=== PATIENT | female | born 1965 | race Caucasian/White ===

== ENCOUNTER 2016-06-15 13:14 | Emergency (ER) | payer BC ==
--- NOTE | 2016-06-15 14:19 | ED NURSING NOTES ---
Clinical Report - Nurses [facility] [place] [address] 06/15/2016 13:16 Patient: MARIANNE PERKINS TRIAGE Acuity: LEVEL 4. Chief Complaint: RECTAL PAIN. Alert. No acute distress. SEPSIS SCREEN: Sepsis Screen. Negative (no infection suspected/documented). --13:30 Natalie Harrison R.N. 13:24 06/15/16. BP: 156/76. HR: 84. RR: 20. O2 saturation: 100%. Temp: 98.3 F (oral). Pain level now: 11/28. --13:30 Natalie Harrison R.N. Weight: 97 kg stated. Height/Length: 62 inches Per Patient. BMI: 39.2. --13:25 Natalie Harrison R.N. Medications Flonase Nasal. --13:24 Natalie Harrison R.N. Zantac Oral. --13:24 Natalie Harrison R.N. Medication/allergy information source: the patient. --13:30 Natalie Harrison R.N. Allergies No Known Drug Allergy. --17:39 Natalie Harrsion R.N. History Arrived by private vehicle. Historian: patient. Accompanied by spouse. Primary physician (none). This started today. ( Pt reports she has external hemorrhoids and yesterday she strained to have a BM and has had increasing pain with some bleeding. Pt reports she had a BM today, and "It was normal."). SOCIAL HX: Never smoker. Occasional alcohol use. No drug use. FALL RISK ASSESSMENT: Fall risk assessment completed. No fall risk identified. NUTRITIONAL RISK ASSESSMENT: The nutritional risk assessment revealed no deficiencies. FUNCTIONAL ASSESSMENT: Functional assessment: no impairments noted. LEARNING NEEDS ASSESSMENT: The learning needs assessment revealed no barriers. SKIN INTEGRITY ASSESSMENT: Skin integrity risk assessment completed. No skin integrity risk identified. --13:30 Natalie Harrison R.N. Assessment GENERAL / NEURO / PSYCH: Alert. Oriented X 4. Appears in no acute distress. Appears in pain. Patient appears calm and cooperative. RESPIRATORY: Respirations not labored. CVS: Capillary refill less than 2 seconds. GI / : Abdominal distention. Abdomen soft. SKIN: Mucous membranes are pink. Skin is warm and dry. --13:30 Natalie Harrison R.N. Interventions ID band on patient. To treatment room. --13:30 Natalie Harrison R.N. PHYSICAL ASSESSMENT 13:31 06/15/16. Ambulatory to room. GENERAL / NEURO / PSYCH: Alert. Oriented X 4. Appears in no acute distress. HEENT: Pupils equal, round and reactive to light. No facial asymmetry noted. Mucous membranes are pink. RESPIRATORY: Respirations not labored. CVS: Capillary refill less than 2 seconds. GI / : Abdominal distention. Abdomen nontender. SKIN: Skin intact. Skin is warm and dry. Normal skin turgor. --13:31 Natalie Harrison R.N. NURSING PROGRESS NOTES 13:31 06/15/16. Patient gowned. Reassurance given. Two patient identifiers checked. Call light placed in reach. Side rails up x 1. Bed placed in lowest position. Brakes of bed on. Patient ready for evaluation- chart flagged. --13:31 Natalie Harrison R.N. DISPOSITION / DISCHARGE Departure time: 14:20 Jun 15 2016. Condition at departure: improved and stable. No learning barriers present. Discharge instructions provided and reviewed with the patient. Reviewed medication(s) side effects, precautions and dosing information. Prescription(s) given to the patient. Patient verbalized understanding. Written instructions provided in Sammarinese. The patient was discharged by the physician asset protection assistant. She was discharged home and accompanied by spouse. She left the Emergency Department ambulatory and via private vehicle. Spouse driving. --17:37 Natalie Harrison R.N. Locked/Released at 06/15/2016 17:39 by Natalie Harrison R.N.
--- NOTE | 2016-06-15 14:19 | ED CLINICAL REPORT ---
Clinical Report - Physicians/Mid Levels [facility] [address] [place] [address] 06/15/2016 13:16 Patient: MARIANNE PERKINS Time Seen: 13:47; initial patient contact. Arrived- By private vehicle. Historian- patient. HISTORY OF PRESENT ILLNESS Chief Complaint: RECTAL PAIN and HEMORRHOIDS. This started yesterday and has been severe. (pt with intermittent hard stools and history of hemorrhoids externally, has had intermittent rectal bleeding with hard to pass dry stools in the past few months, has had prior colonoscopy which was neg and they found internal hemorrhoids as well...pt states they have been acting up with severe rectal pain 'like razorblades in her rectum' for several days, now is starting to get a little better since used suppository this morning.' no black or tarry stools, but feels bloated and her belly button is now an 'outtie'...used to be an inny. has an appointment with her pcp on Friday this coming week for recheck.). Is still present but is better now. The patient has had rectal bleeding, constipation and hard stools but not had dark stools. She has had severe rectal pain described as stabbing and "pain". No nausea, vomiting, diarrhea or abdominal pain. No known contact with a sick individual. Similar symptoms previously: Several times, milder. Recent medical care: The patient was seen recently at another facility in a clinic. REVIEW OF SYSTEMS No dizziness, fainting episodes, weakness, abnormal bleeding or vaginal discharge. No complaint of rectal foreign body. She has had no rectal intercourse. All systems otherwise negative, except as recorded above. PAST HISTORY See nurses notes. Hemorrhoids. No history of peptic ulcer. Medications: Zantac Oral. Flonase Nasal. SOCIAL HISTORY No alcohol use or drug use. ADDITIONAL NOTES The nursing notes have been reviewed with agreement regarding the chief complaint, HPI, ROS, PMH and patient medications and allergies. PHYSICAL EXAM Vital Signs: 06/15/2016 13:24 BP: 156/76. HR: 84. RR: 20. O2 saturation: 100%. Temp: 98.3 F. Pain level now: 11/28. Have been reviewed. Appearance: Alert. Oriented X3. Anxious. Appears to be in pain. Patient in mild distress. Eyes: Pupils equal, round and reactive to light. Eyes normal inspection. Neck: Normal inspection. Neck supple. CVS: Normal heart rate and rhythm. Heart sounds normal. Pulses normal. Respiratory: No respiratory distress. Breath sounds normal. Abdomen: Soft and nontender. Bowel sounds normal. No organomegaly. No mass. Femoral pulses equal. Back: Normal inspection. Rectal: Abnormal digital exam: moderate tenderness; internal hemorrhoids; inflamed and thrombosed external hemorrhoids. No mass. No anal fissure. Rectal sphincter tone not decreased. No fecal impaction. Inflamed external and internal hemorrhoids. No thrombosed external hemorrhoids or bleeding external hemorrhoids. Stool heme negative; hemoccult quality audit representative check passed. (POC test reference range: negative). Stool not melenic. Skin: Skin warm and dry. Normal skin color. No rash. Normal skin turgor. PROGRESS AND PROCEDURES Course of Care: Patient is stable. Physical exam findings are improved. Symptoms better. CLINICAL IMPRESSION Rectal bleed from external and internal hemorrhoids. Bleeding external and internal hemorrhoids. No prolapsed hemorrhoids. INSTRUCTIONS No strenuous activity. Rest. Drink plenty of fluids. No alcohol. Do not smoke. Warnings: Further evaluation is necessary. It is very important to follow up with a physician. CONTROLLED SUBSTANCE WARNINGS. GENERAL WARNINGS: Return or contact your physician immediately if your condition worsens or changes unexpectedly, if not improving as expected, or if other problems arise. Your Current Medications: CONTINUE TAKING THE FOLLOWING MEDICATIONS: Flonase Nasal. Zantac Oral. Prescription Medications: Hydrocodone/APAP 5mg / 325mg: take 1 orally every 6 hours as needed for pain. Dispense ten (10). No refill. Anusol-HC 25 mg suppositories: insert 1 suppository into the rectum every 6 hours for 5 days. Dispense twenty-eight (28). One refill. Substitution is permissible. Follow-up: Follow up with your doctor Friday if not well. Call for an appointment. Understanding of the discharge instructions verbalized by patient. (Electronically signed by Alma Delia Soriano PA-C 06/15/2016 16:07)
--- NOTE | 2016-06-15 14:19 | ED NURSING NOTES ---
Clinical Report - Nurses [facility] [place] [address] 06/15/2016 13:16 Patient: MARIANNE PERKINS TRIAGE Acuity: LEVEL 4. Chief Complaint: RECTAL PAIN. Alert. No acute distress. SEPSIS SCREEN: Sepsis Screen. Negative (no infection suspected/documented). --13:30 Natalie Harrison R.N. 13:24 06/15/16. BP: 156/76. HR: 84. RR: 20. O2 saturation: 100%. Temp: 98.3 F (oral). Pain level now: 11/28. --13:30 Natalie Harrison R.N. Weight: 97 kg stated. Height/Length: 62 inches Per Patient. BMI: 39.2. --13:25 Natalie Harrison R.N. Medications Flonase Nasal. --13:24 Natalie Harrison R.N. Zantac Oral. --13:24 Natalie Harrison R.N. Medication/allergy information source: the patient. --13:30 Natalie Harrison R.N. Allergies No Known Drug Allergy. --17:39 Natalie Harrison R.N. History Arrived by private vehicle. Historian: patient. Accompanied by spouse. Primary physician (none). This started today. ( Pt reports she has external hemorrhoids and yesterday she strained to have a BM and has had increasing pain with some bleeding. Pt reports she had a BM today, and "It was normal."). SOCIAL HX: Never smoker. Occasional alcohol use. No drug use. FALL RISK ASSESSMENT: Fall risk assessment completed. No fall risk identified. NUTRITIONAL RISK ASSESSMENT: The nutritional risk assessment revealed no deficiencies. FUNCTIONAL ASSESSMENT: Functional assessment: no impairments noted. LEARNING NEEDS ASSESSMENT: The learning needs assessment revealed no barriers. SKIN INTEGRITY ASSESSMENT: Skin integrity risk assessment completed. No skin integrity risk identified. --13:30 Natalie Harrison R.N. Assessment GENERAL / NEURO / PSYCH: Alert. Oriented X 4. Appears in no acute distress. Appears in pain. Patient appears calm and cooperative. RESPIRATORY: Respirations not labored. CVS: Capillary refill less than 2 seconds. GI / : Abdominal distention. Abdomen soft. SKIN: Mucous membranes are pink. Skin is warm and dry. --13:30 Natalie Harrison R.N. Interventions ID band on patient. To treatment room. --13:30 Natalie Harrison R.N. PHYSICAL ASSESSMENT 13:31 06/15/16. Ambulatory to room. GENERAL / NEURO / PSYCH: Alert. Oriented X 4. Appears in no acute distress. HEENT: Pupils equal, round and reactive to light. No facial asymmetry noted. Mucous membranes are pink. RESPIRATORY: Respirations not labored. CVS: Capillary refill less than 2 seconds. GI / : Abdominal distention. Abdomen nontender. SKIN: Skin intact. Skin is warm and dry. Normal skin turgor. --13:31 Natalie Harrison R.N. NURSING PROGRESS NOTES 13:31 06/15/16. Patient gowned. Reassurance given. Two patient identifiers checked. Call light placed in reach. Side rails up x 1. Bed placed in lowest position. Brakes of bed on. Patient ready for evaluation- chart flagged. --13:31 Natalie Harrison R.N. DISPOSITION / DISCHARGE Departure time: 14:20 Jun 15 2016. Condition at departure: improved and stable. No learning barriers present. Discharge instructions provided and reviewed with the patient. Reviewed medication(s) side effects, precautions and dosing information. Prescription(s) given to the patient. Patient verbalized understanding. Written instructions provided in Serbian. The patient was discharged by the physician per diem physical therapist assistant. She was discharged home and accompanied by spouse. She left the Emergency Department ambulatory and via private vehicle. Spouse driving. --17:37 Natalie Harrison R.N. Locked/Released at 06/15/2016 17:39 by Natalie Harrison R.N.
--- NOTE | 2016-06-15 17:39 | ED MED RECONCILIATION SUMMARY ---
Patient: MARIANNE PERKINS ADITYA Medication Reconciliation Report [facility] VisitID: [id number] [address] [place] [address] 51y, F Registration Date/Time: 06/15/2016 Weight: 97.0 kg Height/Length: 62 in. BMI: 39.2 ALLERGIES: No Known Drug Allergy The patient's Home Medications are listed below: CONTINUE TAKING THE FOLLOWING MEDICATIONS: Flonase Nasal Zantac Oral The source(s) of the original Home Medication information: patient The following Medications were given to the patient in the Emergency Department: None. The following Medications were prescribed to the patient: Hydrocodone/APAP 5mg / 325mg: take 1 orally every 6 hours as needed for pain. Dispense ten (10). No refill. -- Alma Delia Soriano PA-C Anusol-HC 25 mg suppositories: insert 1 suppository into the rectum every 6 hours for 5 days. Dispense twenty-eight (28). One refill. Substitution is permissible. -- Alma Delia Soriano PA-C
--- NOTE | 2016-06-15 17:39 | ED MED RECONCILIATION SUMMARY ---
Patient: MARIANNE PERKINS ADITYA Medication Reconciliation Report [facility] VisitID: [id number] [address] [place] [address] 51y, F Registration Date/Time: 06/15/2016 Weight: 97.0 kg Height/Length: 62 in. BMI: 39.2 ALLERGIES: No Known Drug Allergy The patient's Home Medications are listed below: CONTINUE TAKING THE FOLLOWING MEDICATIONS: Flonase Nasal Zantac Oral The source(s) of the original Home Medication information: patient The following Medications were given to the patient in the Emergency Department: None. The following Medications were prescribed to the patient: Hydrocodone/APAP 5mg / 325mg: take 1 orally every 6 hours as needed for pain. Dispense ten (10). No refill. -- Alma Delia Soriano PA-C Anusol-HC 25 mg suppositories: insert 1 suppository into the rectum every 6 hours for 5 days. Dispense twenty-eight (28). One refill. Substitution is permissible. -- Alma Delia Soriano PA-C
--- NOTE | 2016-06-15 17:39 | ED MAR SUMMARY ---
..... Medication Administration Record [facility] [address] [place] [id number] Patient: MARIANNE PERKINS Visit ID: [id number] 51y, F Weight: 97.0 kg Height/Length: 62 in BMI: 39.2 ALLERGIES: No Known Drug Allergy
--- NOTE | 2016-06-15 17:39 | ED DISCHARGE INSTRUCTIONS ---
Patient: MARIANNE PERKINS General Instructions [facility] VisitID: [id number] [place] [address] 51y, F Registration Date/Time: 06/15/2016 Rectal bleed from external and internal hemorrhoids. Bleeding external and internal hemorrhoids. No prolapsed hemorrhoids. INSTRUCTIONS No strenuous activity. Rest. Drink plenty of fluids. No alcohol. Do not smoke. Warnings: Further evaluation is necessary. It is very important to follow up with a physician. CONTROLLED SUBSTANCE WARNINGS. GENERAL WARNINGS: Return or contact your physician immediately if your condition worsens or changes unexpectedly, if not improving as expected, or if other problems arise. Your Current Medications: CONTINUE TAKING THE FOLLOWING MEDICATIONS: Flonase Nasal. Zantac Oral. Prescription Medications: Hydrocodone/APAP 5mg / 325mg: take 1 orally every 6 hours as needed for pain. Dispense ten (10). No refill. Anusol-HC 25 mg suppositories: insert 1 suppository into the rectum every 6 hours for 5 days. Dispense twenty-eight (28). One refill. Substitution is permissible. Follow-up: Follow up with your doctor Friday if not well. Call for an appointment. Understanding of the discharge instructions verbalized by patient. ADDITIONAL INFORMATION Hemorrhoids,External A hemorrhoid is a local swelling of the veins around the rectum. These most often occur from repeated forceful straining during bowel movements or heavy lifting. It may also occur in the last few months of . A hemorrhoid feels like a soft lump. It may itch from time to time. When it is inflamed it becomes hard and very painful. Home Care: SITZ BATHS: Sit in a tub filled with about 6 inches of hot water. Allow the water to run in order to keep it hot for a total of 10-15 minutes. Repeat this three times a day until pain is relieved. Keep your stools soft to avoid the need to strain when having a bowel movement. Unless another medicine was prescribed, try the following: IF YOU ARE CONSTIPATED: You may use egqn-shx-ojkpbig laxatives such as MILK OF MAGNESIA (mild acting) or, DULCOLAX (if stronger action is needed). IF YOU ARE NOT CONSTIPATED but stools are hard, try taking Colace (docusate sodium) which is a stool softener. This will soften stools without producing diarrhea. Drinking extra fluids may also help. The use of creams applied to the hemorrhoid itself, such as ANUSOL or PREPARATION H, will be helpful to reduce pain and itching, and speed healing. Prevention: Avoid straining on the toilet by keeping stools soft. Increasing FIBER in your diet (fruits, cereals, vegetables and grains) will promote healthy bowel movement. If this is not working, you may use METAMUCIL and similar products. These are stup-eie-vfealzj fiber supplements. You must drink extra fluids when taking these to avoid constipation. Follow Up with your doctor if you do not begin to respond to the above treatment within the next few days. Get Prompt Medical Attention if any of the following occur: Large amount of rectal bleeding (more than 1 cup of blood in 24 hours) Increasing rectal pain or rectal pain that continues for more than three days of treatment Weakness, dizziness or fainting Vomiting blood (red or black color) You have been given the following additional information: Hemorrhoids No strenuous activity. Rest. (Electronically signed by Alma Delia Soriano PA-C 06/15/2016 16:07)
--- NOTE | 2016-06-15 17:39 | ED DISCHARGE INSTRUCTIONS ---
Patient: MARIANNE PERKINS General Instructions [facility] VisitID: [id number] [place] [address] 51y, F Registration Date/Time: 06/15/2016 Rectal bleed from external and internal hemorrhoids. Bleeding external and internal hemorrhoids. No prolapsed hemorrhoids. INSTRUCTIONS No strenuous activity. Rest. Drink plenty of fluids. No alcohol. Do not smoke. Warnings: Further evaluation is necessary. It is very important to follow up with a physician. CONTROLLED SUBSTANCE WARNINGS. GENERAL WARNINGS: Return or contact your physician immediately if your condition worsens or changes unexpectedly, if not improving as expected, or if other problems arise. Your Current Medications: CONTINUE TAKING THE FOLLOWING MEDICATIONS: Flonase Nasal. Zantac Oral. Prescription Medications: Hydrocodone/APAP 5mg / 325mg: take 1 orally every 6 hours as needed for pain. Dispense ten (10). No refill. Anusol-HC 25 mg suppositories: insert 1 suppository into the rectum every 6 hours for 5 days. Dispense twenty-eight (28). One refill. Substitution is permissible. Follow-up: Follow up with your doctor Friday if not well. Call for an appointment. Understanding of the discharge instructions verbalized by patient. ADDITIONAL INFORMATION Hemorrhoids,External A hemorrhoid is a local swelling of the veins around the rectum. These most often occur from repeated forceful straining during bowel movements or heavy lifting. It may also occur in the last few months of . A hemorrhoid feels like a soft lump. It may itch from time to time. When it is inflamed it becomes hard and very painful. Home Care: SITZ BATHS: Sit in a tub filled with about 6 inches of hot water. Allow the water to run in order to keep it hot for a total of 10-15 minutes. Repeat this three times a day until pain is relieved. Keep your stools soft to avoid the need to strain when having a bowel movement. Unless another medicine was prescribed, try the following: IF YOU ARE CONSTIPATED: You may use whrd-wqm-anipmue laxatives such as MILK OF MAGNESIA (mild acting) or, DULCOLAX (if stronger action is needed). IF YOU ARE NOT CONSTIPATED but stools are hard, try taking Colace (docusate sodium) which is a stool softener. This will soften stools without producing diarrhea. Drinking extra fluids may also help. The use of creams applied to the hemorrhoid itself, such as ANUSOL or PREPARATION H, will be helpful to reduce pain and itching, and speed healing. Prevention: Avoid straining on the toilet by keeping stools soft. Increasing FIBER in your diet (fruits, cereals, vegetables and grains) will promote healthy bowel movement. If this is not working, you may use METAMUCIL and similar products. These are zwks-wmg-dkplffb fiber supplements. You must drink extra fluids when taking these to avoid constipation. Follow Up with your doctor if you do not begin to respond to the above treatment within the next few days. Get Prompt Medical Attention if any of the following occur: Large amount of rectal bleeding (more than 1 cup of blood in 24 hours) Increasing rectal pain or rectal pain that continues for more than three days of treatment Weakness, dizziness or fainting Vomiting blood (red or black color) You have been given the following additional information: Hemorrhoids No strenuous activity. Rest. (Electronically signed by Alma Delia Soriano PA-C 06/15/2016 16:07)
--- NOTE | 2016-06-15 17:39 | ED MAR SUMMARY ---
..... Medication Administration Record [facility] [address], [place] [id number] Patient: MARIANNE PERKINS Visit ID: [id number] 51y, F Weight: 97.0 kg Height/Length: 62 in BMI: 39.2 ALLERGIES: No Known Drug Allergy
== END 2016-06-15 14:20 | disposition home or self-care (01) ==
LOC: ED SRH 13:14
DX: K64.8 Other hemorrhoids (principal); K64.4 Residual hemorrhoidal skin tags

== ENCOUNTER 2016-10-16 10:48 | Inpatient (IN) | payer BC ==
[~2016-10-16] VITALS: Ht 157.5 cm; Wt 95.6 kg
--- NOTE | 2016-10-16 14:12 | ED NURSING NOTES ---
Clinical Report - Nurses [facility] [address] [place] [place] [address] 10/16/2016 10:48 Patient: MARIANNE PERKINS TRIAGE Triage time 11:Oct 16 2016. Acuity: LEVEL 3. Chief Complaint: ABDOMINAL PAIN. Alert. No acute distress. (pain). DONAL COMA SCORE: [place] Coma Scale: 15- eyes open spontaneously (4); best verbal response- oriented x 4 (5); best motor response- obeys commands (6). --11:16 Lizett Ruvalcaba R.N. 11:06 10/16/16. BP: 151/73. HR: 92. RR: 16. O2 saturation: 97%. Temp: 97.8 F. Pain level now: 01/28. --11:16 Lizett Ruvalcaba R.N. Weight: 96.6 kg stated. Height/Length: 61 inches Per Patient. BMI: 40.3. --11:15 Lizett Ruvalcaba R.N. Medications Fiber Oral. Tramadol HCL Oral 50 mg, 4x a day. Vicodin Oral, at bedtime. --11:10 Lizett Ruvalcaba R.N. Stool Softener Oral. --11:11 Lizett Ruvalcaba R.N. Aylin-D Allergy & Congestion Oral. --11:11 Lizett Ruvalcaba R.N. Flonase Nasal. --11:12 Lizett Ruvalcaba R.N. Glucosamine Oral. --11:12 Lizett Ruvalcaba R.N. Omeprazole Oral. --11:12 Lizett Ruvalcaba R.N. Allergies None. --11:12 Lizett Ruvalcaba R.N. Bactrim. --11:12 Lizett Ruvalcaba R.N. History Arrived by private vehicle. Historian: patient. Accompanied by family. This is a recurrent problem. (about 1 weeks). ( pt states about a month ago she had a colonoscopy and the pain started then and has increased since then. Pt states that she is now having rectal bleeding.). She has had nausea, constipation and abdominal pain. Last oral intake by patient was this morning (at 715). 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 PAST MEDICAL HX: Immunizations: up-to-date. The patient is post-menopausal. SOCIAL HX: Never smoker. No alcohol use or drug use. No recent travel. No infectious disease exposure. No known contact with a sick individual. SELF HARM ASSESSMENT: A self harm assessment was performed. The patient answered "no" to the question "Do you have thoughts of harming or killing yourself?" and "Have you recently had thoughts about harming or killing others?". FALL RISK ASSESSMENT: Fall risk assessment completed. No fall risk identified. NUTRITIONAL RISK ASSESSMENT: The nutritional risk assessment revealed no deficiencies. FUNCTIONAL ASSESSMENT: Functional assessment: no impairments noted. LEARNING NEEDS ASSESSMENT: The learning needs assessment revealed no barriers. ABUSE ASSESSMENT: Abuse assessment: The patient was asked "Do you feel safe in your home?". SKIN INTEGRITY ASSESSMENT: Skin integrity risk assessment completed. No skin integrity risk identified. --11:16 Lizett Ruvalcaba R.N. PROBLEMS: UTI - Urinary Tract Infection. Hemorrhoids. Rectal Bleed. --11:14 Lizett Ruvalcaba R.N. ADDITIONAL SURGERIES: Ablation. C section. Cyst removal . Sinus Surgery. Tonsillectomy. Tubal Ligation. Tympanostomy Tubes. --11:14 Lizett Ruvalcaba R.N. Interventions ID band on patient. To room. --11:16 Lizett Ruvalcaba R.N. PHYSICAL ASSESSMENT Ambulatory to room. GENERAL / NEURO / PSYCH: Alert. Oriented X 4. Appears in pain. HEENT: Mucous membranes are pink. RESPIRATORY: Respirations not labored. CVS: Capillary refill less than 2 seconds. GI / : Abdomen soft. Abdominal tenderness in the lower abdomen. Bowel sounds within normal limits. Urgency of urination (feel like she is unable to empty bladder). Blood present in the stool, as gross blood. SKIN: Skin is warm and dry. --11:19 Lizett Ruvalcaba R.N. NURSING PROGRESS NOTES Patient gowned. Head of bed elevated. Reassurance given. Patient identifiers checked. Call light placed in reach. Side rails up. Bed placed in lowest position. Brakes of bed on. --11:19 Lizett Ruvalcaba R.N. 11:30 10/16/2016 Site #1 started via IV in the right hand with an 20g angiocath, with aseptic technique and good blood return; one attempt. Blood drawn: rainbow set. Labeled in the presence of the patient and sent to the lab. Saline lock flushed with 10 mL saline. --11:30 Lizett Ruvalcaba R.N. Patient ID band checked for patient name and birthdate: patient confirmed. Instructions provided to collect clean catch urine and patient verbalized understanding. Clean catch urine collected with return of yellow-colored clear urine; sample sent to lab for urinalysis. Specimen labeled in the presence of the patient. --11:33 Lizett Ruvalcaba R.N. 12:14 10/16/2016 Dilaudid (HYDROmorphone HCl PF) IVP 0.5 mg given over 2 minute(s) via site #1. Allergies verified, confirmed 5 rights and sedative warning given to the patient. IV patency established. IV site checked: no pain, redness, or swelling. IV flushed thoroughly pre- and post-medication administration. IVP given by RN. --12:14 Lizett Ruvalcaba R.N. 12:51 10/16/2016 Lidocaine Topical Gel/Foam 1 application. Allergies verified and confirmed 5 rights. (rectal). --12:51 Lizett Ruvalcaba R.N. The patient is calm and resting quietly. Overall patient status is the same- she states feels better. SKIN: Skin is warm and dry. Skin color within normal limits. --13:28 Lizett Ruvalcaba R.N. 13:27 10/16/16. BP: 137/67. HR: 80. RR: 16. O2 saturation: 97%. Pain level now: 09/28. --13:28 Lizett Ruvalcaba R.N. ( hospitalist in with patient at this time.). --14:38 Lizett Ruvalcaba R.N. 15:14 10/16/16. Care transferred and report received. --15:14 Libby Ruelas R.N. 15:20 First contact with pt. Pt standing at bedside, talking on phone, appears in no acute distress. --15:37 Libby Ruelas R.N. 15:20 10/16/16. BP: 141/69. HR: 82. RR: 18. O2 saturation: 98% on room air. Temp: deferred. Pain level now: 08/28. Additional comments: waiting for room assignment , asking if she can have water. . --15:37 Libby Ruelas R.N. DISPOSITION / DISCHARGE 16:12 10/16/16. Condition at departure: improved and stable. Admitted to Acute Care. Transported via stretcher by [email or web address]. Report was given. (Clement RN , staff nurse). --16:12 Libby Ruelas R.N. 16:10 10/16/16. BP: 140/66. HR: 80. RR: 20. O2 saturation: 99%. Temp: deferred. Pain level now: 09/28. --16:12 Libby Ruelas R.N. Locked/Released at 10/16/2016 18:34 by Libby Ruelas R.N.
--- NOTE | 2016-10-16 14:12 | ED ORDER SUMMARY ---
..... Patient: MARIANNE PERKINS OrderSheet [facility] VisitID: [id number] [address] [place] [address] 51y, F Registration Date/Time: 10/16/2016 ORDER SHEET Weight: 96.6 kg (stated) Allergies: None, Bactrim GENERAL ORDERS: CBC w Diff Urgent (11:57 10/16/2016 Alverto PEGUERO) (Ack 11:58 KHoerner) (11:59 KHoerner) PT with INR Urgent (11:57 10/16/2016 Alverto PEGUERO) (Ack 11:58 KHoerner) (11:59 KHoerner) PTT Urgent (11:57 10/16/2016 Alverto PEGUERO) (Ack 11:58 KHoerner) (11:59 KHoerner) MEDICATION ORDERS: Lidocaine Topical 1 application (NOW) (12:49 10/16/2016 Seema [place]ves.NAubree verbal order read back to Alverto PEGUERO) (12:51 Seema R.N.) IV FLUIDS: Dilaudid IV 0.5 mg (NOW) (12:02 10/16/2016 Alverto PEGUERO) (12:14 Seema R.N.) ORDER SHEET NOTES: [Electronically signed by Libby Ruelas R.N. (18:34 10/16/2016)] [Electronically signed by Rosales Rossi MD (21:08 10/16/2016)] [Electronically locked/signed by Libby Ruelas R.N. (18:34 10/16/2016)]
--- NOTE | 2016-10-16 14:12 | ED ORDER SUMMARY ---
..... Patient: MARIANNE PERKINS OrderSheet [facility] VisitID: [id number] [address] [place] [address] 51y, F Registration Date/Time: 10/16/2016 ORDER SHEET Weight: 96.6 kg (stated) Allergies: None, Bactrim GENERAL ORDERS: CBC w Diff Urgent (11:57 10/16/2016 Alverto PEGUERO) (Ack 11:58 KHoerner) (11:59 KHoerner) PT with INR Urgent (11:57 10/16/2016 Alverto PEGUERO) (Ack 11:58 KHoerner) (11:59 KHoerner) PTT Urgent (11:57 10/16/2016 Alverto PEGUERO) (Ack 11:58 KHoerner) (11:59 KHoerner) MEDICATION ORDERS: Lidocaine Topical 1 application (NOW) (12:49 10/16/2016 Seema [place].NAubree verbal order read back to Alverto PEGUERO) (12:51 Seema R.N.) IV FLUIDS: Dilaudid IV 0.5 mg (NOW) (12:02 10/16/2016 Alverto PEGUERO) (12:14 Seema R.N.) ORDER SHEET NOTES: [Electronically signed by Libby Ruelas R.N. (18:34 10/16/2016)] [Electronically signed by Rosales Rossi MD (21:08 10/16/2016)] [Electronically locked/signed by Libby Ruelas R.N. (18:34 10/16/2016)]
--- NOTE | 2016-10-16 14:12 | ED NURSING NOTES ---
Clinical Report - Nurses [facility] [address] [place] [address] 10/16/2016 10:48 Patient: MARIANNE PERKINS TRIAGE Triage time 11:Oct 16 2016. Acuity: LEVEL 3. Chief Complaint: ABDOMINAL PAIN. Alert. No acute distress. (pain). DONAL COMA SCORE: [place] Coma Scale: 15- eyes open spontaneously (4); best verbal response- oriented x 4 (5); best motor response- obeys commands (6). --11:16 Lizett Ruvalcaba R.N. 11:06 10/16/16. BP: 151/73. HR: 92. RR: 16. O2 saturation: 97%. Temp: 97.8 F. Pain level now: 01/28. --11:16 Lizett Ruvalcaba R.N. Weight: 96.6 kg stated. Height/Length: 61 inches Per Patient. BMI: 40.3. --11:15 Lizett Ruvalcaba R.N. Medications Fiber Oral. Tramadol HCL Oral 50 mg, 4x a day. Vicodin Oral, at bedtime. --11:10 Lizett Ruvalcaba R.N. Stool Softener Oral. --11:11 Lizett Ruvalcaba R.N. Aylin-D Allergy & Congestion Oral. --11:11 Lizett Ruvalcaba R.N. Flonase Nasal. --11:12 Lizett Ruvalcaba R.N. Glucosamine Oral. --11:12 Lizett Ruvalcaba R.N. Omeprazole Oral. --11:12 Lizett Ruvalcaba R.N. Allergies None. --11:12 Lizett Ruvalcaba R.N. Bactrim. --11:12 Lizett Ruvalcaba R.N. History Arrived by private vehicle. Historian: patient. Accompanied by family. This is a recurrent problem. (about 1 weeks). ( pt states about a month ago she had a colonoscopy and the pain started then and has increased since then. Pt states that she is now having rectal bleeding.). She has had nausea, constipation and abdominal pain. Last oral intake by patient was this morning (at 715). 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 PAST MEDICAL HX: Immunizations: up-to-date. The patient is post-menopausal. SOCIAL HX: Never smoker. No alcohol use or drug use. No recent travel. No infectious disease exposure. No known contact with a sick individual. SELF HARM ASSESSMENT: A self harm assessment was performed. The patient answered "no" to the question "Do you have thoughts of harming or killing yourself?" and "Have you recently had thoughts about harming or killing others?". FALL RISK ASSESSMENT: Fall risk assessment completed. No fall risk identified. NUTRITIONAL RISK ASSESSMENT: The nutritional risk assessment revealed no deficiencies. FUNCTIONAL ASSESSMENT: Functional assessment: no impairments noted. LEARNING NEEDS ASSESSMENT: The learning needs assessment revealed no barriers. ABUSE ASSESSMENT: Abuse assessment: The patient was asked "Do you feel safe in your home?". SKIN INTEGRITY ASSESSMENT: Skin integrity risk assessment completed. No skin integrity risk identified. --11:16 Lizett Ruvalcaba R.N. PROBLEMS: UTI - Urinary Tract Infection. Hemorrhoids. Rectal Bleed. --11:14 Lizett Ruvalcaba R.N. ADDITIONAL SURGERIES: Ablation. C section. Cyst removal . Sinus Surgery. Tonsillectomy. Tubal Ligation. Tympanostomy Tubes. --11:14 Lizett Ruvalcaba R.N. Interventions ID band on patient. To room. --11:16 Lizett Ruvalcaba R.N. PHYSICAL ASSESSMENT Ambulatory to room. GENERAL / NEURO / PSYCH: Alert. Oriented X 4. Appears in pain. HEENT: Mucous membranes are pink. RESPIRATORY: Respirations not labored. CVS: Capillary refill less than 2 seconds. GI / : Abdomen soft. Abdominal tenderness in the lower abdomen. Bowel sounds within normal limits. Urgency of urination (feel like she is unable to empty bladder). Blood present in the stool, as gross blood. SKIN: Skin is warm and dry. --11:19 Lizett Ruvalcaba R.N. NURSING PROGRESS NOTES Patient gowned. Head of bed elevated. Reassurance given. Patient identifiers checked. Call light placed in reach. Side rails up. Bed placed in lowest position. Brakes of bed on. --11:19 Lizett Ruvalcaba R.N. 11:30 10/16/2016 Site #1 started via IV in the right hand with an 20g angiocath, with aseptic technique and good blood return; one attempt. Blood drawn: rainbow set. Labeled in the presence of the patient and sent to the lab. Saline lock flushed with 10 mL saline. --11:30 Lizett Ruvalcaba R.N. Patient ID band checked for patient name and birthdate: patient confirmed. Instructions provided to collect clean catch urine and patient verbalized understanding. Clean catch urine collected with return of yellow-colored clear urine; sample sent to lab for urinalysis. Specimen labeled in the presence of the patient. --11:33 Lizett Ruvalcaba R.N. 12:14 10/16/2016 Dilaudid (HYDROmorphone HCl PF) IVP 0.5 mg given over 2 minute(s) via site #1. Allergies verified, confirmed 5 rights and sedative warning given to the patient. IV patency established. IV site checked: no pain, redness, or swelling. IV flushed thoroughly pre- and post-medication administration. IVP given by RN. --12:14 Lizett Ruvalcaba R.N. 12:51 10/16/2016 Lidocaine Topical Gel/Foam 1 application. Allergies verified and confirmed 5 rights. (rectal). --12:51 Lizett Ruvalcaba R.N. The patient is calm and resting quietly. Overall patient status is the same- she states feels better. SKIN: Skin is warm and dry. Skin color within normal limits. --13:28 Lizett Ruvalcaba R.N. 13:27 10/16/16. BP: 137/67. HR: 80. RR: 16. O2 saturation: 97%. Pain level now: 09/28. --13:28 Lizett Ruvalcaba R.N. ( hospitalist in with patient at this time.). --14:38 Lizett Ruvalcaba R.N. 15:14 10/16/16. Care transferred and report received. --15:14 Libby Ruelas R.N. 15:20 First contact with pt. Pt standing at bedside, talking on phone, appears in no acute distress. --15:37 Libby Ruelas R.N. 15:20 10/16/16. BP: 141/69. HR: 82. RR: 18. O2 saturation: 98% on room air. Temp: deferred. Pain level now: 08/28. Additional comments: waiting for room assignment , asking if she can have water. . --15:37 Libby Ruelas R.N. DISPOSITION / DISCHARGE 16:12 10/16/16. Condition at departure: improved and stable. Admitted to Acute Care. Transported via stretcher by [employer]. Report was given. (Clement RN , staff nurse). --16:12 Libby Ruelas R.N. 16:10 10/16/16. BP: 140/66. HR: 80. RR: 20. O2 saturation: 99%. Temp: deferred. Pain level now: 09/28. --16:12 Libby Ruelas R.N. Locked/Released at 10/16/2016 18:34 by Libby Ruelas R.N.
--- NOTE | 2016-10-16 14:12 | ED CLINICAL REPORT ---
Clinical Report - Physicians/Mid Levels [facility] [address] [place] [address] 10/16/2016 10:48 Patient: MARIANNE PERKINS Time Seen: 11:56 Oct 16 2016. Arrived- By private vehicle. Historian- patient. CPT: ER phys charges level 5 (#[id number]). HISTORY OF PRESENT ILLNESS Chief Complaint: RECTAL BLEEDING and PAIN. This started yesterday, has been moderate and is still present. The patient has had rectal bleeding and pain and constipation. No nausea, vomiting, diarrhea or abdominal pain. Similar symptoms previously: Milder. Recent medical care: The patient was seen recently at another facility in a clinic. Seen for similar symptoms. Diagnosis: hemorrhoids. ( Scheduled with surgeon October 29.). REVIEW OF SYSTEMS No dizziness, fainting episodes, weakness or fever. No sore throat or throat, cough, difficulty breathing or chest pain. No hematuria, skin rash, lesions or rash or chills. No cough, difficulty breathing, urinary frequency, laceration or diabetic symptoms. No easy bruising or difficulty with urination. No complaint of rectal foreign body. All systems otherwise negative, except as recorded above. PAST HISTORY Hemorrhoids. No history of peptic ulcer. Has not had GI bleeding. No rectal fissure. Medications: Omeprazole Oral. Glucosamine Oral. Flonase Nasal. Aylin-D Allergy & Congestion Oral. Stool Softener Oral. Fiber Oral. Tramadol HCL Oral 50 mg, 4x a day. Vicodin Oral, at bedtime. Allergies: Bactrim. None. SOCIAL HISTORY Never smoker. No alcohol use or drug use. ADDITIONAL NOTES The nursing notes have been reviewed. PHYSICAL EXAM Vital Signs: 10/16/2016 11:06 BP: 151/73. HR: 92. RR: 16. O2 saturation: 97%. Temp: 97.8 F. Pain level now: 01/28. Appearance: Alert. Appears to be in pain. Patient in moderate distress. (Pacing the room due to pain.). Eyes: Eyes normal inspection. ENT: Pharynx normal. Neck: Normal inspection. CVS: Normal heart rate and rhythm. Respiratory: No respiratory distress. Abdomen: Nontender. Rectal: Severely tender digital exam. External and internal hemorrhoids (cannot get adequate rectal exam due to pain.). Skin: Normal skin color. No rash. Neuro: Oriented X 3. LABS, X-RAYS, AND EKG Laboratory Tests: CBC w Diff: (CHRISTI: 10/16/2016 11:20) ( [facility] 10/16/2016 12:07) Final results Test Result Flag Units (Reference) WHITE BLOOD COUNT 9.0 K/uL (4.5-11.5) RED BLOOD COUNT 4.18 M/uL (4.00-5.20) HEMOGLOBIN 10.1 L gm/dL (12.0-16.0) HEMATOCRIT 31.5 L % (36.0-46.0) MEAN CELL VOLUME 75 L fL (80-100) MEAN CORPUSCULAR HGB 24 L pg (26-34) MEAN CORPUSCULAR HGB CONC 32 g/dL (31-37) RED CELL DISTRIBUTION WIDTH 16.2 H % (11.6-14.8) PLATELET COUNT 405 H K/uL (150-400) NEUTROPHIL % 64.8 % (50-75) LYMPH % 27.4 % (25-40) MONO % 6.4 % (3-14) EOSINOPHIL % 1.0 % (0-4) BASOPHIL % 0.4 % (0-2) PT with INR: (CHRISTI: 10/16/2016 11:20) ( [facility] 10/16/2016 12:08) Final results Test Result Flag Units (Reference) INR 1.0 (0.8-1.2) Low Intensity Therapy: INR 1.5-2.0 PT range 18.5-23.1Mod.Intensity Therapy: INR 2.0-3.0 PT range 23.1-31.5High Intensity Therapy: INR 2.5-3.5 PT range 27.4-35.5High Intensity Therapy 2: INR 3.0-4.0 PT range 31.5-39.3 APTT 26 SECONDS (24-34) . PROGRESS AND PROCEDURES Course of Care: [place]ock Dilaudid 0.5 mg IV Surgeon's office at the [facility] was called and sales receptionist indicated that this person is not officially a patient of theirs. Was not wiling to get the surgeon for me. Discussed with Dr Rocha who suggested admission if pain not adequately controlled. Cannot get a good rectal exam accomplished due to the pain. Topical lidocaine placed. Pt still with 8/10 pain and cannot sit still. Suspect thrombosed internal hemorrhoids. Discussed case with on-call health care provider, (Viviane). Reviewed test results. Agreed upon treatment plan. Health care provider will see patient in hospital. Patient/family counseled. Old medical records ordered. Disposition orders written. Disposition: Admitted to Acute Care. CLINICAL IMPRESSION Rectal bleed consisting of bright red blood from external and internal hemorrhoids. Internal hemorrhoids (Electronically signed by Rosales Rossi MD 10/16/2016 21:08)
--- NOTE | 2016-10-16 14:12 | ED CLINICAL REPORT ---
Clinical Report - Physicians/Mid Levels [facility] [address] [place] [address] 10/16/2016 10:48 Patient: MARIANNE PERKINS Time Seen: 11:56 Oct 16 2016. Arrived- By private vehicle. Historian- patient. CPT: ER phys charges level 5 (#[id number]). HISTORY OF PRESENT ILLNESS Chief Complaint: RECTAL BLEEDING and PAIN. This started yesterday, has been moderate and is still present. The patient has had rectal bleeding and pain and constipation. No nausea, vomiting, diarrhea or abdominal pain. Similar symptoms previously: Milder. Recent medical care: The patient was seen recently at another facility in a clinic. Seen for similar symptoms. Diagnosis: hemorrhoids. ( Scheduled with surgeon October 29.). REVIEW OF SYSTEMS No dizziness, fainting episodes, weakness or fever. No sore throat or throat, cough, difficulty breathing or chest pain. No hematuria, skin rash, lesions or rash or chills. No cough, difficulty breathing, urinary frequency, laceration or diabetic symptoms. No easy bruising or difficulty with urination. No complaint of rectal foreign body. All systems otherwise negative, except as recorded above. PAST HISTORY Hemorrhoids. No history of peptic ulcer. Has not had GI bleeding. No rectal fissure. Medications: Omeprazole Oral. Glucosamine Oral. Flonase Nasal. Aylin-D Allergy & Congestion Oral. Stool Softener Oral. Fiber Oral. Tramadol HCL Oral 50 mg, 4x a day. Vicodin Oral, at bedtime. Allergies: Bactrim. None. SOCIAL HISTORY Never smoker. No alcohol use or drug use. ADDITIONAL NOTES The nursing notes have been reviewed. PHYSICAL EXAM Vital Signs: 10/16/2016 11:06 BP: 151/73. HR: 92. RR: 16. O2 saturation: 97%. Temp: 97.8 F. Pain level now: 01/28. Appearance: Alert. Appears to be in pain. Patient in moderate distress. (Pacing the room due to pain.). Eyes: Eyes normal inspection. ENT: Pharynx normal. Neck: Normal inspection. CVS: Normal heart rate and rhythm. Respiratory: No respiratory distress. Abdomen: Nontender. Rectal: Severely tender digital exam. External and internal hemorrhoids (cannot get adequate rectal exam due to pain.). Skin: Normal skin color. No rash. Neuro: Oriented X 3. LABS, X-RAYS, AND EKG Laboratory Tests: CBC w Diff: (CHRISTI: 10/16/2016 11:20) ( [facility] 10/16/2016 12:07) Final results Test Result Flag Units (Reference) WHITE BLOOD COUNT 9.0 K/uL (4.5-11.5) RED BLOOD COUNT 4.18 M/uL (4.00-5.20) HEMOGLOBIN 10.1 L gm/dL (12.0-16.0) HEMATOCRIT 31.5 L % (36.0-46.0) MEAN CELL VOLUME 75 L fL (80-100) MEAN CORPUSCULAR HGB 24 L pg (26-34) MEAN CORPUSCULAR HGB CONC 32 g/dL (31-37) RED CELL DISTRIBUTION WIDTH 16.2 H % (11.6-14.8) PLATELET COUNT 405 H K/uL (150-400) NEUTROPHIL % 64.8 % (50-75) LYMPH % 27.4 % (25-40) MONO % 6.4 % (3-14) EOSINOPHIL % 1.0 % (0-4) BASOPHIL % 0.4 % (0-2) PT with INR: (CHRISTI: 10/16/2016 11:20) ( [facility] 10/16/2016 12:08) Final results Test Result Flag Units (Reference) INR 1.0 (0.8-1.2) Low Intensity Therapy: INR 1.5-2.0 PT range 18.5-23.1Mod.Intensity Therapy: INR 2.0-3.0 PT range 23.1-31.5High Intensity Therapy: INR 2.5-3.5 PT range 27.4-35.5High Intensity Therapy 2: INR 3.0-4.0 PT range 31.5-39.3 APTT 26 SECONDS (24-34) . PROGRESS AND PROCEDURES Course of Care: Heplock Dilaudid 0.5 mg IV Surgeon's office at the [facility] was called and medical secretary receptionist indicated that this person is not officially a patient of theirs. Was not wiling to get the surgeon for me. Discussed with Dr Rocha who suggested admission if pain not adequately controlled. Cannot get a good rectal exam accomplished due to the pain. Topical lidocaine placed. Pt still with 8/10 pain and cannot sit still. Suspect thrombosed internal hemorrhoids. Discussed case with on-call health care provider, (Viviane). Reviewed test results. Agreed upon treatment plan. Health care provider will see patient in hospital. Patient/family counseled. Old medical records ordered. Disposition orders written. Disposition: Admitted to Acute Care. CLINICAL IMPRESSION Rectal bleed consisting of bright red blood from external and internal hemorrhoids. Internal hemorrhoids (Electronically signed by Rosales Rossi MD 10/16/2016 21:08)
--- NOTE | 2016-10-16 15:49 | History & Physical Report ---
Admission Admit Date 10/16/16 Information Source Information Source: Self Reliability: Good History Chief Complaint rectal pain and bleeding History of Present Illness Admission History and Physical Examination Patient Name: Emily bear. Admission Date: 10/16/16 Primary Care Provider: Dr. Rosmery Perez Attending Physician: Chad Stock M.D. Admitting Physician: Chad Stock M.D. Code Status: Full code Room: Acute care Status: Inpatient SUBJECTIVE Historian: Self Reliability: Good Chief Complaint: Rectal pain and bleeding History of Present Illness: The patient is a 51-year-old female with a past medical history of GERD, allergies, anemia and hemorrhoids that is presenting with a one-day history of acute bleeding from the rectum. Patient had been in her usual state of health when she found yesterday that she was having significant rectal pain while defecating. Patient was straining to defecate and due to the degree of pain patient started to develop significant bleeding. Patient noted that there was approximately 1 cup of blood that she expelled from her rectum. Patient additionally along with bleeding had very significant pain, patient describes pain as the worst pain she has ever experienced in her life. Patient's attempted to clean herself off and normalize his situation however patient continued to have periods of sporadic bleeding. She estimates that it's approximately a few tablespoons each time she bleeds and that is happening every 2-4 hours. The bleed is most evident when patient was straining to defecate and does not really occur when patient is otherwise not attempting. Patient does not have any more complaints at the moment. PAST MEDICAL HISTORY Illnesses: 1. Anemia 2. GERD 3. Allergies Allergies: 1. Seasonal allergies Medications: 1. Flonase 1 spray daily 2. Aylin 180 mg daily 3. Omeprazole 40 mg daily 4. Iron supplementation 5. Colostomy Surgery: 1. Tubal ligation 2. Ablation 3. Sinus surgery 4. Cyst removal 5. Tonsillectomy 6. Eustachian tube correction Injuries: 1. None Hospitalizations: 1. For childbirth FAMILY HISTORY Parents: 1. Father, at age 21 , 2. Mother, 70 dementia, skin cancer, bipolar Siblings: 1. None Children: 1. 30 years old son, heart disease 2. 28 years old son healthy Other significant family history: None SOCIAL HISTORY 1. Marital Status: 2. Jew: ( 3. Education: College education 4. 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 Occupational health exposures: None HABITS 1. Tobacco: None 2. Drugs: None 3. Alcohol: Once every few months 4. Caffeine: Approximately 2 caffeine beverages daily HEALTH SUPERVISION Item/Test 1. Vision screen: Performed in 2016 2. Cholesterol Profile: August 2016 3. PSA: None 4. ROMÁN: None 5. FOBT: August 2016 6. Blood Glucose: August 2016 7. Colonoscopy: August 2016 8. History and physical exam: August 2016 9. Audiogram: August 2016 10. Mammogram: August 2016 11. Pap/pelvic exam: August 2016 IMMUNIZATIONS: 1. Pneumococcal: [pneumonia] 2. Influenza: [flu] 3. Tetanus: [tet] ADVANCED DIRECTIVES: 1. Living well: No 2. POLST: No 3. Code Status: Full code 4. Durable Power Division Toll Wire Chief Health care: No 5. Donor card: No Patient History 1. Internal thrombosed hemorrhoids 2. SEVERE RECTAL PAIN 3. Anemia Social History * Medications and Allergies Medications Current Medications Sig/Miriam Start time Last Medication Dose Route Stop Time Status Admin Pantoprazole Sodium 40 MG DAILY@0600 10/17 0600 UNV Sesquihydrate PO Hydromorphone HCl 1 MG Q2H PRN 10/16 1600 UNV IV Lidocaine 15 ML Q4H PRN 10/16 1600 UNV PO Sodium Chloride 1,000 ML ASDIRECTED 10/16 1600 UNV IV Allergies Coded Allergies: Sulfamethoxazole w/Trimethoprim (From Bactrim) (Severe, 10/16/16) Review of Systems Constitutional Malaise. Denies: Fever, Chills, Sweats, Weakness, Other. Eyes Denies: Pain, Vision Change, Conjunctival Inflammation, Eyelid Inflammation, Redness, Other. ENT Denies: Ear Pain, Ear Discharge, Nose Pain, Nasal Discharge, Nasal Congestion, Mouth Pain, Mouth Swelling, Throat Pain, Throat Swelling, Other. Respiratory Denies: Cough, Dry, SOB w/exertion, Wheezing, Hemoptysis, Pleuritic Pain, Sputum , Other. Cardiovascular Denies: Chest Pain, Palpitations, Orthopnea, PND, Edema, Light-headedness, Other. Gastrointestinal Denies: Nausea, Vomiting, Abdominal Pain, Diarrhea, Constipation, Melena, Hematochezia, Other. Genitourinary Denies: Dysuria, Frequency, Incontinence, Hematuria, Retention, Other. Musculoskeletal Denies: Neck Pain, Shoulder Pain, Arm Pain, Back Pain, Hand Pain, Leg Pain, Foot Pain, Other. Skin Denies: Rash, Lesions, Jaundice, Bruising, Other. Neurological Denies: Weakness, Numbness, Incoordination, Change in speech, Confusion, Seizures, Other. Physical Exam General Appearance Alert, Oriented X3 HEENT Normal exam, Atraumatic, EOMI, Moist mucous membranes Lungs Clear to auscultation, Normal air movement Neck No JVD, No masses, No lymphadenopathy Cardiovascular Regular rate and rhythm, Normal S1 and S2, No murmurs, gallops, rubs Abdomen Soft, No tenderness, No guarding, No rebound Rectal No masses, blood in rectal vault Extremities No cyanosis, No clubbing, No edema, No tenderness Skin No Breakdown, No Significant Lesions Neurological Normal tone, Sensation intact, Cranial nerves intact, Strength 5/5 x4 ext's, No lateralizing signs Psych/Mental Status Mood normal LAB Results Laboratory Tests 10/16 1120 Coagulation INR (0.8 - 1.2) 1.0 APTT (24 - 34 SECONDS) 26 Hematology WBC (4.5 - 11.5 K/uL) 9.0 RBC (4.00 - 5.20 M/uL) 4.18 Hgb (12.0 - 16.0 gm/dL) 10.1 Hct (36.0 - 46.0 %) 31.5 MCV (80 - 100 fL) 75 MCH (26 - 34 pg) 24 RDW (11.6 - 14.8 %) 16.2 Neut % (Auto) (50 - 75 %) 64.8 Lymph % (Auto) (25 - 40 %) 27.4 [place] % (Auto) (3 - 14 %) 6.4 Eos % (Auto) (0 - 4 %) 1.0 Baso % (Auto) (0 - 2 %) 0.4 Plt Count, EDTA (150 - 400 K/uL) 405 PUBS MCHC (31 - 37 g/dL) 32 Assessment and Plan Problem List 1. Internal thrombosed hemorrhoids Plan Patient has a finding of bleeding internal hemorrhoids Currently patient has approximately 300 mL's of blood loss as per patient Patient has significant amount of pain Patient has never had this happen to her in the past Surgery was consultation will follow up on recommendations We'll treat pain as much as possible however patient is aware that she will never be 100% pain-free Will monitor CBC We'll monitor for bleeding 2. SEVERE RECTAL PAIN Plan Patient has good responses with lidocaine gel as well as Dilaudid We'll do a combination of both in order to control patient's pain adequately 3. Anemia Plan Patient has a history of iron deficiency anemia For which she takes iron tablets We'll hold iron some limitation for the time being given constipating effects Will treat the patient with clear liquid diet for the time being
[2016-10-16 16:31] VITALS: BP 151/76
--- NOTE | 2016-10-16 17:28 | Consultation Report ---
History Chief Complaint Rectal pain History of Present Illness 51-year-old female followed by [facility], Dr. Strauss, who referred the patient approximately 4 weeks ago to [facility] for colonoscopy and upper GI endoscopy for symptoms of abdominal bloating. Patient has never had an ultrasound of her gallbladder. Patient states that a few days later she developed severe rectal pain with bleeding. Should be noted a couple months ago she was seen in the emergency room at [facility] with rectal pain and treated with suppositories which ameliorated her symptoms. With onset of rectal pain approximately 3-1/2 weeks ago. She again tried using to suppository but the pain worsened. She went to the walk-in clinic at the [place] approximately 2 weeks ago and had a refill of the suppositories and lidocaine topical. The pain persisted and she returned to the [place] walk-in clinic, where she was referred to a surgeon who stated that she could not be seen regardless of how much discomfort she was in until 29 October 2016 Patient returned to see her primary care provider last week and treated with hydrocodone one tablet at bedtime and to continue suppositories. The pain became so severe he could no longer stand it. She returned to the emergency room today [facility]. The emergency room physician tried to get her seen by the surgeon in [place], but the switchboard operator receptionist refused to let the emergency room physician speak to the surgeon about the patient. The patient states that the pain can be described as sharp, burning, worsening with bowel movements, radiating into her lower abdomen associated with bleeding or bowel movements and today, filling the toilet bowl with blood. Patient states that there discomfort associated with her. She cannot sit down. Patient states that every time a doctor has attempted to examine her. She has excruciating pain PAST MEDICAL/ SURGICAL HISTORY: Status post tonsillectomy and adenoidectomy. Status post PE tubes as an infant. Status post excision thyroglossal cyst as a child. Status post tubal ligation. Status post x1. Status post uterine ablation. The lesion has undergone upper GI endoscopy and colonoscopy in 4 weeks ago. FAMILY HISTORY: Mother is age 70. History of adult onset diabetes, emphysema, dementia, bipolar disorder and suicidal ideation in the past. Father age 22 drug overdose (suicide?) No brothers or sisters Patient History 1. SEVERE RECTAL PAIN Social History . 2 sons, one with heart issues. No daughters. Patient does not smoke. He should really drinks alcohol. Patient does not use recreational drugs. Occupation patient works for [employer] Medications and Allergies Medications Ayqu-unb-zqcqtxk Colace 100 mg 3 tablets a day. Vuqc-vco-zupuehn glucosamine one tablet per day. Omeprazole 20 mg daily Flonase 2 sprays each nostril daily Aylin 180 mg daily Current Medications Sig/Miriam Start time Last Medication Dose Route Stop Time Status Admin Pantoprazole Sodium 40 MG DAILY@0600 10/17 0600 AC Sesquihydrate PO Hydromorphone HCl 1 MG Q2H PRN 10/16 1600 AC IV Lidocaine 15 ML Q4H PRN 10/16 1600 AC PO Sodium Chloride 1,000 ML ASDIRECTED 10/16 1600 AC IV Allergies Coded Allergies: Sulfamethoxazole w/Trimethoprim (From Bactrim) (Severe, 10/16/16) Review of Systems Other G3, P2, Ab1 Menarche age 11 First full-term age 20. Last menstrual period age 49. Last Pap smear H 49. Last mammogram age 49. Last colonoscopy, EGD 4 weeks ago. Patient denies any history of depression or suicidal ideation. No history of hepatitis, jaundice, rheumatic fever, heart murmurs, requiring antibiotics, eating tendencies, or blood transfusions. Remaining 12 point review of systems is negative Physical Exam Vital Signs / I&Os Vital Signs Date Time Temp Pulse Resp B/P Pulse O2 O2 Flow FiO2 Ox Delivery Rate 10/16 1631 98.2 82 18 151/76 99 General Appearance Alert, Oriented X3, Cooperative, No acute distress, patient has been given IV analgesics and topical lidocaine to her anus/rectum HEENT Atraumatic, PERRLA, EOMI, Moist mucous membranes Lungs Clear to auscultation Neck Supple, No JVD, No masses, No thyromegaly, No lymphadenopathy, 2+ carotid pulse wo bruit, patient has a scar anterior midline upper neck from her previous surgery Cardiovascular Regular rate and rhythm Abdomen Normal bowel sounds, Soft, No tenderness, No guarding, No rebound, No masses, No hepatosplenomegaly, obese, prominent Rectal no attempt was made rectal examination because of the discomfort the patient Extremities No cyanosis, No clubbing, No edema Skin warm and dry Neurological No lateralizing signs Psych/Mental Status Mental status normal LAB Results Laboratory Tests 10/16 1120 Coagulation INR (0.8 - 1.2) 1.0 APTT (24 - 34 SECONDS) 26 Hematology WBC (4.5 - 11.5 K/uL) 9.0 RBC (4.00 - 5.20 M/uL) 4.18 Hgb (12.0 - 16.0 gm/dL) 10.1 Hct (36.0 - 46.0 %) 31.5 MCV (80 - 100 fL) 75 MCH (26 - 34 pg) 24 RDW (11.6 - 14.8 %) 16.2 Neut % (Auto) (50 - 75 %) 64.8 Lymph % (Auto) (25 - 40 %) 27.4 [place] % (Auto) (3 - 14 %) 6.4 Eos % (Auto) (0 - 4 %) 1.0 Baso % (Auto) (0 - 2 %) 0.4 Plt Count, EDTA (150 - 400 K/uL) 405 PUBS MCHC (31 - 37 g/dL) 32 Assessment and Plan Problem List 1. SEVERE RECTAL PAIN Plan History consistent with anal fissure. We will schedule patient for urgent exam under anesthesia. I explained this to the patient. I have also explained to the patient if we find a fissure, I will perform a fissurectomy. Risks to include infection, pain, recurrence, and possible incontinence. Also explained to the patient if she has thrombosed hemorrhoids or gangrenous internal hemorrhoids I will perform hemorrhoidectomy. The risk of this would include pain, infection, recurrence, and possible incontinence. Patient understands and agrees to proceed and we will schedule her appropriately. All questions have been answered to her satisfaction.
--- NOTE | 2016-10-16 17:28 | Consultation Report ---
History Chief Complaint Rectal pain History of Present Illness 51-year-old female followed by [facility], Dr. Strauss, who referred the patient approximately 4 weeks ago to [facility] for colonoscopy and upper GI endoscopy for symptoms of abdominal bloating. Patient has never had an ultrasound of her gallbladder. Patient states that a few days later she developed severe rectal pain with bleeding. Should be noted a couple months ago she was seen in the emergency room at [facility] with rectal pain and treated with suppositories which ameliorated her symptoms. With onset of rectal pain approximately 3-1/2 weeks ago. She again tried using to suppository but the pain worsened. She went to the walk-in clinic at the [place] approximately 2 weeks ago and had a refill of the suppositories and lidocaine topical. The pain persisted and she returned to the [place] walk-in clinic, where she was referred to a surgeon who stated that she could not be seen regardless of how much discomfort she was in until 29 October 2016 Patient returned to see her primary care provider last week and treated with hydrocodone one tablet at bedtime and to continue suppositories. The pain became so severe he could no longer stand it. She returned to the emergency room today [facility]. The emergency room physician tried to get her seen by the surgeon in [place], but the drafting clerk refused to let the emergency room physician speak to the surgeon about the patient. The patient states that the pain can be described as sharp, burning, worsening with bowel movements, radiating into her lower abdomen associated with bleeding or bowel movements and today, filling the toilet bowl with blood. Patient states that there discomfort associated with her. She cannot sit down. Patient states that every time a doctor has attempted to examine her. She has excruciating pain PAST MEDICAL/ SURGICAL HISTORY: Status post tonsillectomy and adenoidectomy. Status post PE tubes as an infant. Status post excision thyroglossal cyst as a child. Status post tubal ligation. Status post x1. Status post uterine ablation. The lesion has undergone upper GI endoscopy and colonoscopy in 4 weeks ago. FAMILY HISTORY: Mother is age 70. History of adult onset diabetes, emphysema, dementia, bipolar disorder and suicidal ideation in the past. Father age 22 drug overdose (suicide?) No brothers or sisters Patient History 1. SEVERE RECTAL PAIN Social History . 2 sons, one with heart issues. No daughters. Patient does not smoke. He should really drinks alcohol. Patient does not use recreational drugs. Occupation patient works for [employer] Medications and Allergies Medications Pvjw-zcm-vwmmknp Colace 100 mg 3 tablets a day. Ohys-qaf-skectlp glucosamine one tablet per day. Omeprazole 20 mg daily Flonase 2 sprays each nostril daily Aylin 180 mg daily Current Medications Sig/Miriam Start time Last Medication Dose Route Stop Time Status Admin Pantoprazole Sodium 40 MG DAILY@0600 10/17 0600 AC Sesquihydrate PO Hydromorphone HCl 1 MG Q2H PRN 10/16 1600 AC IV Lidocaine 15 ML Q4H PRN 10/16 1600 AC PO Sodium Chloride 1,000 ML ASDIRECTED 10/16 1600 AC IV Allergies Coded Allergies: Sulfamethoxazole w/Trimethoprim (From Bactrim) (Severe, 10/16/16) Review of Systems Other G3, P2, Ab1 Menarche age 11 First full-term age 20. Last menstrual period age 49. Last Pap smear H 49. Last mammogram age 49. Last colonoscopy, EGD 4 weeks ago. Patient denies any history of depression or suicidal ideation. No history of hepatitis, jaundice, rheumatic fever, heart murmurs, requiring antibiotics, eating tendencies, or blood transfusions. Remaining 12 point review of systems is negative Physical Exam Vital Signs / I&Os Vital Signs Date Time Temp Pulse Resp B/P Pulse O2 O2 Flow FiO2 Ox Delivery Rate 10/16 1631 98.2 82 18 151/76 99 General Appearance Alert, Oriented X3, Cooperative, No acute distress, patient has been given IV analgesics and topical lidocaine to her anus/rectum HEENT Atraumatic, PERRLA, EOMI, Moist mucous membranes Lungs Clear to auscultation Neck Supple, No JVD, No masses, No thyromegaly, No lymphadenopathy, 2+ carotid pulse wo bruit, patient has a scar anterior midline upper neck from her previous surgery Cardiovascular Regular rate and rhythm Abdomen Normal bowel sounds, Soft, No tenderness, No guarding, No rebound, No masses, No hepatosplenomegaly, obese, prominent Rectal no attempt was made rectal examination because of the discomfort the patient Extremities No cyanosis, No clubbing, No edema Skin warm and dry Neurological No lateralizing signs Psych/Mental Status Mental status normal LAB Results Laboratory Tests 10/16 1120 Coagulation INR (0.8 - 1.2) 1.0 APTT (24 - 34 SECONDS) 26 Hematology WBC (4.5 - 11.5 K/uL) 9.0 RBC (4.00 - 5.20 M/uL) 4.18 Hgb (12.0 - 16.0 gm/dL) 10.1 Hct (36.0 - 46.0 %) 31.5 MCV (80 - 100 fL) 75 MCH (26 - 34 pg) 24 RDW (11.6 - 14.8 %) 16.2 Neut % (Auto) (50 - 75 %) 64.8 Lymph % (Auto) (25 - 40 %) 27.4 [place] % (Auto) (3 - 14 %) 6.4 Eos % (Auto) (0 - 4 %) 1.0 Baso % (Auto) (0 - 2 %) 0.4 Plt Count, EDTA (150 - 400 K/uL) 405 PUBS MCHC (31 - 37 g/dL) 32 Assessment and Plan Problem List 1. SEVERE RECTAL PAIN Plan History consistent with anal fissure. We will schedule patient for urgent exam under anesthesia. I explained this to the patient. I have also explained to the patient if we find a fissure, I will perform a fissurectomy. Risks to include infection, pain, recurrence, and possible incontinence. Also explained to the patient if she has thrombosed hemorrhoids or gangrenous internal hemorrhoids I will perform hemorrhoidectomy. The risk of this would include pain, infection, recurrence, and possible incontinence. Patient understands and agrees to proceed and we will schedule her appropriately. All questions have been answered to her satisfaction.
[2016-10-16 18:26] VITALS: BP 142/55
--- NOTE | 2016-10-16 19:21 | NUR ---
PT ARRIVED TO FLOOR AROUND 1630 VIA GURNEY FROM THE ED. C/O PAIN AT 5/10, IN ABD AND THEN RECTUM. DR COOPER IN TO CONSULT AND CONFIRMED SURGERY FOR TONIGHT. PT IS A&OX3, LS CTA AND BT HYPOACTIVE AND DISTENDED. AMBULATES IND. NO NAUSEA OR SOB. VSS. WAITING FOR SURGERY TO COME CASINO HOST.
--- NOTE | 2016-10-16 21:09 | ED MED RECONCILIATION SUMMARY ---
Patient: MARIANNE PERKINS Medication Reconciliation Report [facility] VisitID: [id number] [address] [place] [address] 51y, F Registration Date/Time: 10/16/2016 Weight: 96.6 kg Height/Length: 61 in. BMI: 40.3 ALLERGIES: Bactrim, None The patient's Home Medications are listed below: THE FOLLOWING MEDICATIONS NEED TO BE RECONCILED: Aylin-D Allergy & Congestion Oral Fiber Oral Flonase Nasal Glucosamine Oral Omeprazole Oral Stool Softener Oral Tramadol HCL Oral 50 mg, 4x a day Vicodin Oral, at bedtime The source(s) of the original Home Medication information: Not obtained. The following Medications were given to the patient in the Emergency Department: Dilaudid [IVP] IVP 0.5 mg, administered: 10/16/2016 12:14:00 PM Lidocaine [Topical] Topical 1 application, administered: 10/16/2016 12:51:00 PM The following Medications were prescribed to the patient: None.
--- NOTE | 2016-10-16 21:09 | ED MED RECONCILIATION SUMMARY ---
Patient: MARIANNE PERKINS Medication Reconciliation Report [facility] VisitID: [id number] [address] [place] [address] 51y, F Registration Date/Time: 10/16/2016 Weight: 96.6 kg Height/Length: 61 in. BMI: 40.3 ALLERGIES: Bactrim, None The patient's Home Medications are listed below: THE FOLLOWING MEDICATIONS NEED TO BE RECONCILED: Aylin-D Allergy & Congestion Oral Fiber Oral Flonase Nasal Glucosamine Oral Omeprazole Oral Stool Softener Oral Tramadol HCL Oral 50 mg, 4x a day Vicodin Oral, at bedtime The source(s) of the original Home Medication information: Not obtained. The following Medications were given to the patient in the Emergency Department: Dilaudid [IVP] IVP 0.5 mg, administered: 10/16/2016 12:14:00 PM Lidocaine [Topical] Topical 1 application, administered: 10/16/2016 12:51:00 PM The following Medications were prescribed to the patient: None.
--- NOTE | 2016-10-16 21:09 | ED MAR SUMMARY ---
..... Medication Administration Record [facility] [address] [place] [address] Patient: MARIANNE PERKINS Visit ID: [id number] 51y, F Weight: 96.6 kg Height/Length: 61 in BMI: 40.3 ALLERGIES: Bactrim, None Given 12:14 10/16/2016 Lizett Ruvalcaba, RJeff Medication Administered: DILAUDID [IVP] (HYDROMORPHONE HCL PF), Dose: 0.5 mg IVP over 2 minute(s), Site: #1 right hand. Medication Ordered: Dilaudid IV 0.5 mg (NOW). Given 12:51 10/16/2016 Lizett Ruvalcaba, RAubreeNAubree Medication Administered: LIDOCAINE [TOPICAL], Dose: 1 application Gel/Foam Topical. Medication Ordered: Lidocaine Topical 1 application (NOW).
--- NOTE | 2016-10-16 21:09 | ED MAR SUMMARY ---
..... Medication Administration Record [facility] [address] [place] [address] Patient: MARIANNE PERKINS Visit ID: [id number] 51y, F Weight: 96.6 kg Height/Length: 61 in BMI: 40.3 ALLERGIES: Bactrim, None Given 12:14 10/16/2016 Lizett Ruvalcaba, RJeff Medication Administered: DILAUDID [IVP] (HYDROMORPHONE HCL PF), Dose: 0.5 mg IVP over 2 minute(s), Site: #1 right hand. Medication Ordered: Dilaudid IV 0.5 mg (NOW). Given 12:51 10/16/2016 Lizett Ruvalcaba, RAubreeNAubree Medication Administered: LIDOCAINE [TOPICAL], Dose: 1 application Gel/Foam Topical. Medication Ordered: Lidocaine Topical 1 application (NOW).
--- NOTE | 2016-10-16 21:09 | ED DISCHARGE INSTRUCTIONS ---
Patient: MARIANNE PERKINS General Instructions [facility] VisitID: [id number] [place] [address] 51y, F Registration Date/Time: 10/16/2016 Rectal bleed consisting of bright red blood from external and internal hemorrhoids. Internal hemorrhoids ADDITIONAL INFORMATION Rectal Bleeding (Stable) Your exam today shows signs of blood in the stool. This is called rectal bleeding, because the blood passes through the rectum. However, the blood may not be coming from the rectum. Blood in the stool may be red or black in color. Red blood in the stool usually comes from the lower gastro-intestinal (GI) tract. This may be due to diverticulosis, polyps, colon inflammation or infection, anal fissure or hemorrhoids. In persons over 50 tumors and cancer of the intestinal tract may first show up as red blood in the stool. Upper GI bleeding causes the stool to turn black. This may occur with bleeding from the esophagus, stomach, duodenum or small intestine. Very small amounts of GI bleeding may not be visible and can only be discovered on a chemical test of the stool. You have not lost a large amount of blood and your condition appears stable at this time. It is very important to have a follow-up exam to determine the exact cause of your bleeding. Home Care: 1) You may resume normal activity as long as you feel well. 2) Avoid aspirin and anti-inflammatory drugs such as ibuprofen (Advil, Motrin) and naproxen (Aleve and Naprosyn). You may use acetaminophen (Tylenol) for pain. [ NOTE : If you have chronic liver disease, talk with your doctor before using acetaminophen.] 3) Avoid alcohol. Follow Up with your doctor or as advised by our medical staff. It is very important that you have further tests done to find the cause of your bleeding. Get Prompt Medical Attention if any of the following occur: -- Large amount of rectal bleeding (more than 1 cup of blood in 24 hours) -- Increasing abdominal pain -- Weakness, dizziness or fainting -- Vomiting blood (red or black color) Hemorrhoids,External A hemorrhoid is a local swelling of the veins around the rectum. These most often occur from repeated forceful straining during bowel movements or heavy lifting. It may also occur in the last few months of . A hemorrhoid feels like a soft lump. It may itch from time to time. When it is inflamed it becomes hard and very painful. Home Care: SITZ BATHS: Sit in a tub filled with about 6 inches of hot water. Allow the water to run in order to keep it hot for a total of 10-15 minutes. Repeat this three times a day until pain is relieved. Keep your stools soft to avoid the need to strain when having a bowel movement. Unless another medicine was prescribed, try the following: IF YOU ARE CONSTIPATED: You may use edst-jcy-hjsmetz laxatives such as MILK OF MAGNESIA (mild acting) or, DULCOLAX (if stronger action is needed). IF YOU ARE NOT CONSTIPATED but stools are hard, try taking Colace (docusate sodium) which is a stool softener. This will soften stools without producing diarrhea. Drinking extra fluids may also help. The use of creams applied to the hemorrhoid itself, such as ANUSOL or PREPARATION H, will be helpful to reduce pain and itching, and speed healing. Prevention: Avoid straining on the toilet by keeping stools soft. Increasing FIBER in your diet (fruits, cereals, vegetables and grains) will promote healthy bowel movement. If this is not working, you may use METAMUCIL and similar products. These are qsen-wrg-sggldux fiber supplements. You must drink extra fluids when taking these to avoid constipation. Follow Up with your doctor if you do not begin to respond to the above treatment within the next few days. Get Prompt Medical Attention if any of the following occur: Large amount of rectal bleeding (more than 1 cup of blood in 24 hours) Increasing rectal pain or rectal pain that continues for more than three days of treatment Weakness, dizziness or fainting Vomiting blood (red or black color) Hemorrhoids,External A hemorrhoid is a local swelling of the veins around the rectum. These most often occur from repeated forceful straining during bowel movements or heavy lifting. It may also occur in the last few months of . A hemorrhoid feels like a soft lump. It may itch from time to time. When it is inflamed it becomes hard and very painful. Home Care: SITZ BATHS: Sit in a tub filled with about 6 inches of hot water. Allow the water to run in order to keep it hot for a total of 10-15 minutes. Repeat this three times a day until pain is relieved. Keep your stools soft to avoid the need to strain when having a bowel movement. Unless another medicine was prescribed, try the following: IF YOU ARE CONSTIPATED: You may use akdg-ltk-zobszum laxatives such as MILK OF MAGNESIA (mild acting) or, DULCOLAX (if stronger action is needed). IF YOU ARE NOT CONSTIPATED but stools are hard, try taking Colace (docusate sodium) which is a stool softener. This will soften stools without producing diarrhea. Drinking extra fluids may also help. The use of creams applied to the hemorrhoid itself, such as ANUSOL or PREPARATION H, will be helpful to reduce pain and itching, and speed healing. Prevention: Avoid straining on the toilet by keeping stools soft. Increasing FIBER in your diet (fruits, cereals, vegetables and grains) will promote healthy bowel movement. If this is not working, you may use METAMUCIL and similar products. These are bjkn-uwx-qmihhmq fiber supplements. You must drink extra fluids when taking these to avoid constipation. Follow Up with your doctor if you do not begin to respond to the above treatment within the next few days. Get Prompt Medical Attention if any of the following occur: Large amount of rectal bleeding (more than 1 cup of blood in 24 hours) Increasing rectal pain or rectal pain that continues for more than three days of treatment Weakness, dizziness or fainting Vomiting blood (red or black color) Rectal Bleeding (Stable) Your exam today shows signs of blood in the stool. This is called rectal bleeding, because the blood passes through the rectum. However, the blood may not be coming from the rectum. Blood in the stool may be red or black in color. Red blood in the stool usually comes from the lower gastro-intestinal (GI) tract. This may be due to diverticulosis, polyps, colon inflammation or infection, anal fissure or hemorrhoids. In persons over 50 tumors and cancer of the intestinal tract may first show up as red blood in the stool. Upper GI bleeding causes the stool to turn black. This may occur with bleeding from the esophagus, stomach, duodenum or small intestine. Very small amounts of GI bleeding may not be visible and can only be discovered on a chemical test of the stool. You have not lost a large amount of blood and your condition appears stable at this time. It is very important to have a follow-up exam to determine the exact cause of your bleeding. Home Care: 1) You may resume normal activity as long as you feel well. 2) Avoid aspirin and anti-inflammatory drugs such as ibuprofen (Advil, Motrin) and naproxen (Aleve and Naprosyn). You may use acetaminophen (Tylenol) for pain. [ NOTE : If you have chronic liver disease, talk with your doctor before using acetaminophen.] 3) Avoid alcohol. Follow Up with your doctor or as advised by our medical staff. It is very important that you have further tests done to find the cause of your bleeding. Get Prompt Medical Attention if any of the following occur: -- Large amount of rectal bleeding (more than 1 cup of blood in 24 hours) -- Increasing abdominal pain -- Weakness, dizziness or fainting -- Vomiting blood (red or black color) You have been given the following additional information: Rectal Bleed, Stable Hemorrhoids Hemorrhoids Rectal Bleed, Stable (Electronically signed by Rosales Rossi MD 10/16/2016 21:08)
--- NOTE | 2016-10-16 21:09 | ED DISCHARGE INSTRUCTIONS ---
Patient: MARIANNE PERKINS General Instructions [facility] VisitID: [id number] [place] [address] 51y, F Registration Date/Time: 10/16/2016 Rectal bleed consisting of bright red blood from external and internal hemorrhoids. Internal hemorrhoids ADDITIONAL INFORMATION Rectal Bleeding (Stable) Your exam today shows signs of blood in the stool. This is called rectal bleeding, because the blood passes through the rectum. However, the blood may not be coming from the rectum. Blood in the stool may be red or black in color. Red blood in the stool usually comes from the lower gastro-intestinal (GI) tract. This may be due to diverticulosis, polyps, colon inflammation or infection, anal fissure or hemorrhoids. In persons over 50 tumors and cancer of the intestinal tract may first show up as red blood in the stool. Upper GI bleeding causes the stool to turn black. This may occur with bleeding from the esophagus, stomach, duodenum or small intestine. Very small amounts of GI bleeding may not be visible and can only be discovered on a chemical test of the stool. You have not lost a large amount of blood and your condition appears stable at this time. It is very important to have a follow-up exam to determine the exact cause of your bleeding. Home Care: 1) You may resume normal activity as long as you feel well. 2) Avoid aspirin and anti-inflammatory drugs such as ibuprofen (Advil, Motrin) and naproxen (Aleve and Naprosyn). You may use acetaminophen (Tylenol) for pain. [ NOTE : If you have chronic liver disease, talk with your doctor before using acetaminophen.] 3) Avoid alcohol. Follow Up with your doctor or as advised by our medical staff. It is very important that you have further tests done to find the cause of your bleeding. Get Prompt Medical Attention if any of the following occur: -- Large amount of rectal bleeding (more than 1 cup of blood in 24 hours) -- Increasing abdominal pain -- Weakness, dizziness or fainting -- Vomiting blood (red or black color) Hemorrhoids,External A hemorrhoid is a local swelling of the veins around the rectum. These most often occur from repeated forceful straining during bowel movements or heavy lifting. It may also occur in the last few months of . A hemorrhoid feels like a soft lump. It may itch from time to time. When it is inflamed it becomes hard and very painful. Home Care: SITZ BATHS: Sit in a tub filled with about 6 inches of hot water. Allow the water to run in order to keep it hot for a total of 10-15 minutes. Repeat this three times a day until pain is relieved. Keep your stools soft to avoid the need to strain when having a bowel movement. Unless another medicine was prescribed, try the following: IF YOU ARE CONSTIPATED: You may use blvh-uud-kocffqw laxatives such as MILK OF MAGNESIA (mild acting) or, DULCOLAX (if stronger action is needed). IF YOU ARE NOT CONSTIPATED but stools are hard, try taking Colace (docusate sodium) which is a stool softener. This will soften stools without producing diarrhea. Drinking extra fluids may also help. The use of creams applied to the hemorrhoid itself, such as ANUSOL or PREPARATION H, will be helpful to reduce pain and itching, and speed healing. Prevention: Avoid straining on the toilet by keeping stools soft. Increasing FIBER in your diet (fruits, cereals, vegetables and grains) will promote healthy bowel movement. If this is not working, you may use METAMUCIL and similar products. These are ygsp-hho-sdodgiy fiber supplements. You must drink extra fluids when taking these to avoid constipation. Follow Up with your doctor if you do not begin to respond to the above treatment within the next few days. Get Prompt Medical Attention if any of the following occur: Large amount of rectal bleeding (more than 1 cup of blood in 24 hours) Increasing rectal pain or rectal pain that continues for more than three days of treatment Weakness, dizziness or fainting Vomiting blood (red or black color) Hemorrhoids,External A hemorrhoid is a local swelling of the veins around the rectum. These most often occur from repeated forceful straining during bowel movements or heavy lifting. It may also occur in the last few months of . A hemorrhoid feels like a soft lump. It may itch from time to time. When it is inflamed it becomes hard and very painful. Home Care: SITZ BATHS: Sit in a tub filled with about 6 inches of hot water. Allow the water to run in order to keep it hot for a total of 10-15 minutes. Repeat this three times a day until pain is relieved. Keep your stools soft to avoid the need to strain when having a bowel movement. Unless another medicine was prescribed, try the following: IF YOU ARE CONSTIPATED: You may use ejjs-jrp-rpzfgqm laxatives such as MILK OF MAGNESIA (mild acting) or, DULCOLAX (if stronger action is needed). IF YOU ARE NOT CONSTIPATED but stools are hard, try taking Colace (docusate sodium) which is a stool softener. This will soften stools without producing diarrhea. Drinking extra fluids may also help. The use of creams applied to the hemorrhoid itself, such as ANUSOL or PREPARATION H, will be helpful to reduce pain and itching, and speed healing. Prevention: Avoid straining on the toilet by keeping stools soft. Increasing FIBER in your diet (fruits, cereals, vegetables and grains) will promote healthy bowel movement. If this is not working, you may use METAMUCIL and similar products. These are hrjf-prz-vwsrzub fiber supplements. You must drink extra fluids when taking these to avoid constipation. Follow Up with your doctor if you do not begin to respond to the above treatment within the next few days. Get Prompt Medical Attention if any of the following occur: Large amount of rectal bleeding (more than 1 cup of blood in 24 hours) Increasing rectal pain or rectal pain that continues for more than three days of treatment Weakness, dizziness or fainting Vomiting blood (red or black color) Rectal Bleeding (Stable) Your exam today shows signs of blood in the stool. This is called rectal bleeding, because the blood passes through the rectum. However, the blood may not be coming from the rectum. Blood in the stool may be red or black in color. Red blood in the stool usually comes from the lower gastro-intestinal (GI) tract. This may be due to diverticulosis, polyps, colon inflammation or infection, anal fissure or hemorrhoids. In persons over 50 tumors and cancer of the intestinal tract may first show up as red blood in the stool. Upper GI bleeding causes the stool to turn black. This may occur with bleeding from the esophagus, stomach, duodenum or small intestine. Very small amounts of GI bleeding may not be visible and can only be discovered on a chemical test of the stool. You have not lost a large amount of blood and your condition appears stable at this time. It is very important to have a follow-up exam to determine the exact cause of your bleeding. Home Care: 1) You may resume normal activity as long as you feel well. 2) Avoid aspirin and anti-inflammatory drugs such as ibuprofen (Advil, Motrin) and naproxen (Aleve and Naprosyn). You may use acetaminophen (Tylenol) for pain. [ NOTE : If you have chronic liver disease, talk with your doctor before using acetaminophen.] 3) Avoid alcohol. Follow Up with your doctor or as advised by our medical staff. It is very important that you have further tests done to find the cause of your bleeding. Get Prompt Medical Attention if any of the following occur: -- Large amount of rectal bleeding (more than 1 cup of blood in 24 hours) -- Increasing abdominal pain -- Weakness, dizziness or fainting -- Vomiting blood (red or black color) You have been given the following additional information: Rectal Bleed, Stable Hemorrhoids Hemorrhoids Rectal Bleed, Stable (Electronically signed by Rosales Rossi MD 10/16/2016 21:08)
--- NOTE | 2016-10-16 21:22 | NUR ---
0800- PT TX TO [facility], ALERT, ORIENTED, CONFIRMS PROCEDURE, LATEX ALLERGY, ON BACTRIM FOR A BLADDER INFECTION CURRENTLY GLASSES ON, NO DENTURES., VOIDED JUST PRIOR TO TX. HAS GONE HOME-- "HE GETS REALLY NERVOUS" AND PT WANTED HIM TO GO.
--- NOTE | 2016-10-16 21:31 | NUR ---
0840-- PT POSITIONED PRONE JACKNIFE BY ALL OR STAFF, CARE TAKEN WITH ARMS, CHEST, BREASTS AND LEG POSITION-- AIRWAY --INTUBATED WITH FOAM PILLOW OVER FACE. 0850-- PT HAD DECREASING SATS-- SO CHANGED POSITION TO LESS SEVERE JACKNIFE-- SATS IMPROVED, BREATH SOUNDS EQUAL AND ANESTHESIA HAPPY WITH THIS POSITION.
[2016-10-16] MEDS ORDERED: COLACE100 MG PO (21:32)
[2016-10-16] MEDS ORDERED: PERCOCET1 TA1 PO (21:33)
--- NOTE | 2016-10-16 21:35 | Provider's Discharge Care Plan ---
Problem, Goal, Plan Problem List 1. STATUS POST EXAM UNDER ANESTHESIA AND POSTERIOR MIDLINE FISSURECTOMY Goals: Improve disease control, Therapeutic intervention Instructions: Follow up as directed, Take meds as directed, avoid prolonged standing. Ice pack. The surgical site for 24 hours. Drinks 5-6 glasses of water per day
--- NOTE | 2016-10-16 21:48 | Operative Report ---
Operative Report Date of Surgery: 10/16/16 Preoperate Diagnosis: rectal pain, Postoperative Diagnosis: posterior midline fissure Surgeon: Davis Rocha MD Payroll Services Analyst Surgeon: none Procedure Performed: Exam under anesthesia. Posterior midline fissurectomy Anesthesia: Gen. endotracheal. Local 1% with epinephrine, 0.5% Marcaine with epinephrine perianal block Indications: 51-year-old female status post colonoscopy, EGD at [facility] for bloating and who a couple days later developed severe rectal discomfort. She described the pain as burning, sharp located in the rectum, especially after bowel movements. Patient was in so much discomfort she would not allow her physicians to fully examine her. Multiple visits to the emergency room at [facility], [facility] walk-in clinic and primary care provider. Patient was referred to surgeon's in [place] who could not see her until October 29, 2016. By history, I felt she had a posterior midline fissure, and she was scheduled for urgent surgery. FINDINGS: Prominent external hemorrhoids did not appear to be thrombosed. Posterior sentinel pile, posterior midline fissure. Surgical Technique: Patient brought to the operating room placed in the prone jackknife position after having undergone general endotracheal anesthesia by the anesthesiology Department. After proper anesthesia taken effect the patient's buttocks were taped apart. The perianal region and perineum were prepped using Betadine and draped in a sterile fashion. A four-quadrant perianal block was performed using local anesthetic. The aforementioned findings noted. Two stay sutures were placed about the anus at 10 o'clock and 2 o'clock position and traction applied, posterior laterally. Another stay suture was placed at 12:00 and traction applied posteriorly/cephalad. Exposing the fissure, using a 15 blade we were able to cut away the edges of the anoderm /mucosa surrounding the fissure. The base of the fissure was then curetted using a bone curette. The underlying edges of the anoderm/mucosa were developed using blunt dissection. The anoderm/ mucosa were approximated using [id number]-ng-czkwv 3-0 Polysorb interrupted suture, thus obliterating the fissure. Hemostasis assured, a malena-pad was placed over the anus and perineum. Patient was then placed in the dorsal supine position and extubated. Patient was then transferred to the recovery room in stable condition. There were no intraoperative or anesthetic complications. CONDITION: Stable to postoperative anesthesia recovery room COMPLICATIONS: None ESTIMATED BLOOD LOSS: Minimal FLUIDS:: 400 cc lactated Ringer's DRAINS/PACKING: None SPECIMEN: None
--- NOTE | 2016-10-16 21:48 | Operative Report ---
Operative Report Date of Surgery: 10/16/16 Preoperate Diagnosis: rectal pain, Postoperative Diagnosis: posterior midline fissure Surgeon: Davis Rocha MD Tower Climber Surgeon: none Procedure Performed: Exam under anesthesia. Posterior midline fissurectomy Anesthesia: Gen. endotracheal. Local 1% with epinephrine, 0.5% Marcaine with epinephrine perianal block Indications: 51-year-old female status post colonoscopy, EGD at [facility] for bloating and who a couple days later developed severe rectal discomfort. She described the pain as burning, sharp located in the rectum, especially after bowel movements. Patient was in so much discomfort she would not allow her physicians to fully examine her. Multiple visits to the emergency room at [facility], [facility] walk-in clinic and primary care provider. Patient was referred to surgeon's in [place] who could not see her until October 29, 2016. By history, I felt she had a posterior midline fissure, and she was scheduled for urgent surgery. FINDINGS: Prominent external hemorrhoids did not appear to be thrombosed. Posterior sentinel pile, posterior midline fissure. Surgical Technique: Patient brought to the operating room placed in the prone jackknife position after having undergone general endotracheal anesthesia by the anesthesiology Department. After proper anesthesia taken effect the patient's buttocks were taped apart. The perianal region and perineum were prepped using Betadine and draped in a sterile fashion. A four-quadrant perianal block was performed using local anesthetic. The aforementioned findings noted. Two stay sutures were placed about the anus at 10 o'clock and 2 o'clock position and traction applied, posterior laterally. Another stay suture was placed at 12:00 and traction applied posteriorly/cephalad. Exposing the fissure, using a 15 blade we were able to cut away the edges of the anoderm /mucosa surrounding the fissure. The base of the fissure was then curetted using a bone curette. The underlying edges of the anoderm/mucosa were developed using blunt dissection. The anoderm/ mucosa were approximated using [id number]-kh-[id number] 3-0 Polysorb interrupted suture, thus obliterating the fissure. Hemostasis assured, a malena-pad was placed over the anus and perineum. Patient was then placed in the dorsal supine position and extubated. Patient was then transferred to the recovery room in stable condition. There were no intraoperative or anesthetic complications. CONDITION: Stable to postoperative anesthesia recovery room COMPLICATIONS: None ESTIMATED BLOOD LOSS: Minimal FLUIDS:: 400 cc lactated Ringer's DRAINS/PACKING: None SPECIMEN: None
--- NOTE | 2016-10-16 22:28 | NUR ---
PTM RECEIVED TO PACU AROUSABLE AND COMPLAINING OF SORE THROAT. NO NAUSEA. RESPIRATIONS FAST AND SHALLOW, PLACED ON HUMIDIFIED FACE TENT AT 100% O2. HOB ELEVATED, PT POSITIONED FOR COMFORT.
--- NOTE | 2016-10-16 22:39 | NUR ---
PT FULLY AWAKE AND COMFORTABLE. NO NAUSEA.
[2016-10-16 22:52] VITALS: BP 151/79
--- NOTE | 2016-10-16 23:00 | NUR ---
Patient came back from PACU. She was able walk from the trolley to the toilet and has been able to pass urine. Patient confirms that pain is wewll controlled and does not feel nauseated. She is currently allowed Clear liquids.
[2016-10-16 23:06] VITALS: BP 107/53
[2016-10-16 23:22] VITALS: BP 119/75
[2016-10-16 23:40] VITALS: BP 118/59
[2016-10-17 00:15] VITALS: BP 122/76
[2016-10-17 00:42] VITALS: BP 128/69
--- NOTE | 2016-10-17 00:43 | NUR ---
BACK FROM PACU AT 2300 VIA [facility]. TRANSFERED IND FROM [facility] TO [facility] WHEN BACK. NO C/O PAIN, STATES, "I FEEL MUCH BETTER." REPORT GIVEN TO CORE DRILL OPERATOR RN. PT RESTING W/ CALL LIGHT IN REACH.
[2016-10-17 02:37] VITALS: BP 115/61
[2016-10-17 06:42] VITALS: BP 102/49
--- NOTE | 2016-10-17 07:03 | Progress Note ---
Subjective General 51-year-old to postoperative day #1 status post posterior midline fissurectomy. Doing very well Physical Exam Vital Signs / I&Os Vital Signs Date Time Temp Pulse Resp B/P Pulse O2 O2 Flow FiO2 Ox Delivery Rate 10/17 0642 98.8 79 15 102/49 97 Nasal 2.0 Cannula 10/17 0237 98.8 73 15 115/61 97 Nasal 2.0 Cannula 10/17 0119 2.0 10/17 0111 Nasal 2.0 Cannula I&O 10/16 0800 10/16 1600 10/17 0000 Intake Total 600 Output Total 550 Balance 50 General Appearance Oriented X3, Cooperative, No acute distress HEENT Normal exam Lungs Clear to auscultation Neck No JVD Cardiovascular Regular rate and rhythm Rectal deferred Extremities No cyanosis, No clubbing, No edema Skin warm and dry Neurological No lateralizing signs Psych/Mental Status Mental status normal LAB Results Laboratory Tests 10/16 10/17 1120 0520 Chemistry Plasma Sodium (136 - 145 mmol/L) 141 Plasma Potassium (3.5 - 5.1 mmol/L) 4.4 Plasma Chloride (98 - 107 mmol/L) 107 CO2 (Enzymatic) (21 - 32 mmol/L) 25 BUN (7 - 18 mg/dL) 8 Creatinine (0.6 - 1.3 mg/dL) 0.7 Est GFR ( Amer) (mL/min) >60 Est GFR (Non-Af Amer) (mL/min) >60 Glucose (70 - 110 mg/dL) 87 Plasma Calcium (8.5 - 10.1 mg/dL) 7.6 Plasma Magnesium (1.8 - 2.4 mg/dL) 2.1 Total Bilirubin (0.0 - 1.0 mg/dL) 0.2 AST (15 - 37 U/L) 17 ALT (12 - 78 U/L) 18 Alkaline Phosphatase (46 - 116 U/L) 106 Total Protein (6.4 - 8.2 g/dL) 6.3 Albumin (3.3 - 5.0 g/dL) 2.8 Coagulation INR (0.8 - 1.2) 1.0 APTT (24 - 34 SECONDS) 26 Hematology WBC (4.5 - 11.5 K/uL) 9.0 9.0 RBC (4.00 - 5.20 M/uL) 4.18 3.56 Hgb (12.0 - 16.0 gm/dL) 10.1 8.7 Hct (36.0 - 46.0 %) 31.5 26.7 MCV (80 - 100 fL) 75 75 MCH (26 - 34 pg) 24 24 RDW (11.6 - 14.8 %) 16.2 15.9 Neut % (Auto) (50 - 75 %) 64.8 75.4 Lymph % (Auto) (25 - 40 %) 27.4 17.7 [place] % (Auto) (3 - 14 %) 6.4 6.5 Eos % (Auto) (0 - 4 %) 1.0 0.2 Baso % (Auto) (0 - 2 %) 0.4 0.2 Plt Count, EDTA (150 - 400 K/uL) 405 334 PUBS MCHC (31 - 37 g/dL) 32 33 Assessment and Plan Problem List 1. STATUS POST EXAM UNDER ANESTHESIA AND POSTERIOR MIDLINE FISSURECTOMY Plan Stable postop course. Discharge home today. Avoid constipation. Followup in 3 -5 days. Patient was discharged on Colace 100 mg 5 times a day #30. Percocet 1 -2 tablets every 6 hours when necessary pain #20
--- NOTE | 2016-10-17 09:15 | NUR ---
RECEIVED PT STANDING UP AT THE BEDSIDE, AWAKE, LAERT, ORIENTED, COHERENT, COOPERATIVE. V/S TAKEN AND RECORDED. ASSESSMENT DONE. PT COMPLAINT OF RECTUM PAIN, DENIES N/V AT THIS TIME. TOLERATED HER MEALS WELL. DUE MEDS GIVEN. NEEDS ATTENDED.
--- NOTE | 2016-10-17 10:47 | NUR ---
DISCHARGE ISNTRUCS., PRESC., GIVEN TO PT. EMPHASIZING ON NO PROLONG WALKING AND STANDING, TO CALL MD IMMEDIATELY IF SHORTNESS OF BREATH, WEAKNESS, DIZZINESS DEVELOPS. DR MACHUCA NOTIFIED EARLIER AT ABOUT 1015, WITH H/H RESULTS 8.10/13. WITH ORDERS MADE AND CARRIED. MS MARSHALL FAXED THE INFORMATION TO PCP BUT INSTRUC PT TO TAKE THE DISCHARGE GI WORKS TO TAKE TO HER PCP BUT IT'S HER COPY THEY CAN MAKE A COPY. FOR RPT CBC WITH PCP. PT UNDERSTOOD.
--- NOTE | 2016-10-17 11:50 | NUR ---
PT WENT HOME WITH NIECE. ASSISTED BY MS GAYLE TO THE LOBBY, PT PREFERS TO AMBULATE.
== END 2016-10-17 11:00 | disposition home health service (06) | DRG 348 ==
LOC: ED SRH 10:48 → TRANS SRH 14:19 → ACUTE2 SRH 14:19
PROVIDERS: Specialist; ADMIT Emergency Medicine
PROC: 0DBQ0ZZ Excision of Anus, Open Approach (ICD-10-PCS; principal; 2016-10-16 20:30)
DX: K60.2 Anal fissure, unspecified (principal); K62.5 Hemorrhage of anus and rectum; D50.9 Iron deficiency anemia, unspecified; K64.4 Residual hemorrhoidal skin tags
CPT/HCPCS: 50004; 60001; 70002; 80102; 80852; 83125; 84038; 90074; 90098; 90100; 92720; 94001; 94060; 95059

== ENCOUNTER 2016-10-22 09:57 | Emergency (ER) | payer BC ==
[~2016-10-22 09:57] MED LIST: COLACE100 MG PO; PERCOCET1 TA1 PO
--- NOTE | 2016-10-22 12:03 | ED NURSING NOTES ---
Clinical Report - Nurses [facility] [address] [place] [address] 10/22/2016 9:58 [id number] TRI[facility] Triage time 10:08. Acuity: LEVEL 3. Chief Complaint: (Surgury for anal fisure, on friday night, went home on . [place] hot and cold and a lot of pain in the surgury site.). Alert. No acute distress. SEPSIS SCREEN: Sepsis Screen: negative. Negative (no infection suspected/documented). DONAL COMA SCORE: [place] Coma Scale: 15- eyes open spontaneously (4); best verbal response- oriented x 4 (5); best motor response- obeys commands (6). --10:14 Michelle Morales R.N. 10:08 10/22/16. BP: 126/56. HR: 87. RR: 20. O2 saturation: 96% on room air. Temp: 97.7 F. Pain level now: 12/29. --10:14 Michelle Morales R.N. 10:08 10/22/16. BP: 126/56. HR: 87. RR: 20. O2 saturation: 96% on room air. Temp: 97.7 F. Pain level now: 12/29. --13:20 Michelle Morales R.N. Weight: 96.6 kg stated. Height/Length: 62 inches. BMI: 39. --10:09 Michelle Morales R.N. Medications Aylin-D Allergy & Congestion Oral. Fiber Oral. Flonase Nasal. Glucosamine Oral. Omeprazole Oral. Stool Softener Oral. Tramadol HCL Oral 50 mg, 4x a day. --10:11 Michelle Morales R.N. Percocet Oral 5/325 mg, PRN. --10:11 Michelle Morales R.N. Allergies Bactrim. --10:11 Michelle Morales R.N. Medication/allergy information source: the patient. --10:14 Michelle Morales R.N. History Arrived by private vehicle. Historian: patient. Primary physician (mumtaz). Onset. (). 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 PAST MEDICAL HX: Immunizations: status is unknown. The patient is post-menopausal. SOCIAL HX: Never smoker. No alcohol use or drug use. FALL RISK ASSESSMENT: Fall risk assessment completed. No fall risk identified. NUTRITIONAL RISK ASSESSMENT: The nutritional risk assessment revealed no deficiencies. FUNCTIONAL ASSESSMENT: Functional assessment: no impairments noted. LEARNING NEEDS ASSESSMENT: The learning needs assessment revealed no barriers. SKIN INTEGRITY ASSESSMENT: Skin integrity risk assessment completed. No skin integrity risk identified. --10:14 Michelle Morales R.N. PROBLEMS: Anaal fissure . UTI - Urinary Tract Infection. Hemorrhoids. Rectal Bleed. --10:13 Michelle Morales R.N. ADDITIONAL SURGERIES: Ablation. Anal fissure . C section. Cyst removal . Sinus Surgery. Tonsillectomy. Tubal Ligation. Tympanostomy Tubes. --10:13 Michelle Morales R.N. Interventions ID band on patient. To room. --10:14 Michelle Morales R.N. PHYSICAL ASSESSMENT Ambulatory to room. Patient gowned. GENERAL / NEURO / PSYCH: Alert. Oriented X 4. Appears in pain and anxious. HEENT: Mucous membranes are pink. RESPIRATORY: Respirations not labored. CVS: Capillary refill less than 2 seconds. GI / : Abdomen nontender. SKIN: Skin intact. Skin is warm and dry. Normal skin turgor. --10:15 Michelle Morales R.N. NURSING PROGRESS NOTES Patient gowned. Head of bed elevated. Reassurance given. Two patient identifiers checked. Call light placed in reach. Side rails up x 2. Bed placed in lowest position. Brakes of bed on. Patient ready for evaluation. --10:15 Michelle Morales R.N. Patient ID band checked for patient name: patient confirmed. Instructions provided to collect clean catch urine and patient verbalized understanding. Clean catch urine collected with return of yellow-colored clear urine; sample sent to lab for urinalysis and culture. Specimen labeled in the presence of the patient. --10:31 Michelle Morales R.N. 10:31 10/22/16. BP: 124/65. HR: 74. RR: 20. O2 saturation: 99% on room air. --10:32 Mihcelle Morales R.N. 10:51 10/22/2016 Zofran ODT (Ondansetron) PO 4 mg given. Allergies verified and confirmed 5 rights. --11:01 Michelle Morales R.N. 10:52 10/22/2016 Lidocaine Topical 1 application. Allergies verified and confirmed 5 rights. (hemmorroids). --11:02 Michelle Morales R.N. 10:52 10/22/2016 Percocet (Oxycodone-Acetaminophen) PO 5/325 mg Tablets 1 tab given. Allergies verified, confirmed 5 rights and sedative warning given to the patient. --11:03 Michelle Morales R.N. DISPOSITION / DISCHARGE Condition at departure: improved. No learning barriers present. Discharge instructions provided and reviewed with the patient. Patient verbalized understanding. Written instructions provided in [place]. The patient was discharged home and accompanied by spouse. She left the Emergency Department ambulatory and via private vehicle. Spouse driving. Medication list reviewed and validated. --13:19 Michelle Morales R.N. 12:14 10/22/16. BP: 128/69. HR: 80. RR: 16. O2 saturation: 100%. Temp: deferred. Pain level now: 04/30. 10:31 10/22/16. BP: 124/65. HR: 74. RR: 20. O2 saturation: 99% on room air. 10:08 10/22/16. BP: 126/56. HR: 87. RR: 20. O2 saturation: 96% on room air. Temp: 97.7 F. Pain level now: 12/29. --13:19 Michelle Morales R.N. Locked/Released at 10/22/2016 13:21 by Michelle Morales R.N.
--- NOTE | 2016-10-22 12:03 | ED NURSING NOTES ---
Clinical Report - Nurses [facility] [address] [place] [address] 10/22/2016 9:58 [id number] Triage time 10:08. Acuity: LEVEL 3. Chief Complaint: (Surgury for anal fisure, on friday night, went home on . [place] hot and cold and a lot of pain in the surgury site.). Alert. No acute distress. SEPSIS SCREEN: Sepsis Screen: negative. Negative (no infection suspected/documented). DONAL COMA SCORE: [place] Coma Scale: 15- eyes open spontaneously (4); best verbal response- oriented x 4 (5); best motor response- obeys commands (6). --10:14 Michelle Morales R.N. 10:08 10/22/16. BP: 126/56. HR: 87. RR: 20. O2 saturation: 96% on room air. Temp: 97.7 F. Pain level now: 12/29. --10:14 Michelle Morales R.N. 10:08 10/22/16. BP: 126/56. HR: 87. RR: 20. O2 saturation: 96% on room air. Temp: 97.7 F. Pain level now: 12/29. --13:20 Michelle Morales R.N. Weight: 96.6 kg stated. Height/Length: 62 inches. BMI: 39. --10:09 Michelle Morales R.N. Medications Aylin-D Allergy & Congestion Oral. Fiber Oral. Flonase Nasal. Glucosamine Oral. Omeprazole Oral. Stool Softener Oral. Tramadol HCL Oral 50 mg, 4x a day. --10:11 Michelle Morales R.N. Percocet Oral 5/325 mg, PRN. --10:11 Michelle Morales R.N. Allergies Bactrim. --10:11 Michelle Morales R.N. Medication/allergy information source: the patient. --10:14 Michelle Morales R.N. History Arrived by private vehicle. Historian: patient. Primary physician (mumtaz). Onset. (). 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 PAST MEDICAL HX: Immunizations: status is unknown. The patient is post-menopausal. SOCIAL HX: Never smoker. No alcohol use or drug use. FALL RISK ASSESSMENT: Fall risk assessment completed. No fall risk identified. NUTRITIONAL RISK ASSESSMENT: The nutritional risk assessment revealed no deficiencies. FUNCTIONAL ASSESSMENT: Functional assessment: no impairments noted. LEARNING NEEDS ASSESSMENT: The learning needs assessment revealed no barriers. SKIN INTEGRITY ASSESSMENT: Skin integrity risk assessment completed. No skin integrity risk identified. --10:14 Michelle Morales R.N. PROBLEMS: Anaal fissure . UTI - Urinary Tract Infection. Hemorrhoids. Rectal Bleed. --10:13 Michelle Morales R.N. ADDITIONAL SURGERIES: Ablation. Anal fissure . C section. Cyst removal . Sinus Surgery. Tonsillectomy. Tubal Ligation. Tympanostomy Tubes. --10:13 Michelle Morales R.N. Interventions ID band on patient. To room. --10:14 Michelle Morales R.N. PHYSICAL ASSESSMENT Ambulatory to room. Patient gowned. GENERAL / NEURO / PSYCH: Alert. Oriented X 4. Appears in pain and anxious. HEENT: Mucous membranes are pink. RESPIRATORY: Respirations not labored. CVS: Capillary refill less than 2 seconds. GI / : Abdomen nontender. SKIN: Skin intact. Skin is warm and dry. Normal skin turgor. --10:15 Michelle Morales R.N. NURSING PROGRESS NOTES Patient gowned. Head of bed elevated. Reassurance given. Two patient identifiers checked. Call light placed in reach. Side rails up x 2. Bed placed in lowest position. Brakes of bed on. Patient ready for evaluation. --10:15 Michelle Morales R.N. Patient ID band checked for patient name: patient confirmed. Instructions provided to collect clean catch urine and patient verbalized understanding. Clean catch urine collected with return of yellow-colored clear urine; sample sent to lab for urinalysis and culture. Specimen labeled in the presence of the patient. --10:31 Michelle Morales R.N. 10:31 10/22/16. BP: 124/65. HR: 74. RR: 20. O2 saturation: 99% on room air. --10:32 Michelle Morales R.N. 10:51 10/22/2016 Zofran ODT (Ondansetron) PO 4 mg given. Allergies verified and confirmed 5 rights. --11:01 Michelle Morales R.N. 10:52 10/22/2016 Lidocaine Topical 1 application. Allergies verified and confirmed 5 rights. (hemmorroids). --11:02 Michelle Morales R.N. 10:52 10/22/2016 Percocet (Oxycodone-Acetaminophen) PO 5/325 mg Tablets 1 tab given. Allergies verified, confirmed 5 rights and sedative warning given to the patient. --11:03 Michelle Morales R.N. DISPOSITION / DISCHARGE Condition at departure: improved. No learning barriers present. Discharge instructions provided and reviewed with the patient. Patient verbalized understanding. Written instructions provided in German. The patient was discharged home and accompanied by spouse. She left the Emergency Department ambulatory and via private vehicle. Spouse driving. Medication list reviewed and validated. --13:19 Michelle Morales R.N. 12:14 10/22/16. BP: 128/69. HR: 80. RR: 16. O2 saturation: 100%. Temp: deferred. Pain level now: 04/30. 10:31 10/22/16. BP: 124/65. HR: 74. RR: 20. O2 saturation: 99% on room air. 10:08 10/22/16. BP: 126/56. HR: 87. RR: 20. O2 saturation: 96% on room air. Temp: 97.7 F. Pain level now: 12/29. --13:19 Michelle Morales R.N. Locked/Released at 10/22/2016 13:21 by Michelle Morales R.N.
--- NOTE | 2016-10-22 12:03 | ED CLINICAL REPORT ---
Clinical Report - Physicians/Mid Levels [facility] [address] [place] [address] 10/22/2016 9:58 Patient: MARIANNE PERKINS Time Seen: 1040; initial patient contact. Arrived- By private vehicle. Historian- patient. HISTORY OF PRESENT ILLNESS Chief Complaint: RECTAL PAIN. This started yesterday and is still present. It was gradual in onset and has been constant but is not gone now. Not described as severe. The patient has had rectal pain. (recent surgery for anal fissure. reports chills. reports she was doing well after a few days and not on the prescribed medications then got worse.). No recent travel. No known contact with a sick individual. Similar symptoms previously: Once. Recent medical care: The patient was seen recently by a health care provider (recent surgery). REVIEW OF SYSTEMS No dizziness, fainting episodes, weakness, difficulty breathing or chest pain. All systems otherwise negative, except as recorded above. PAST HISTORY See nurses notes. Medications: Percocet Oral 5/325 mg, PRN. Aylin-D Allergy & Congestion Oral. Fiber Oral. Flonase Nasal. Glucosamine Oral. Omeprazole Oral. Stool Softener Oral. Tramadol HCL Oral 50 mg, 4x a day. Allergies: Bactrim. SOCIAL HISTORY Never smoker. No alcohol use or drug use. No recent travel. Is a local resident. ADDITIONAL NOTES The nursing notes have been reviewed. PHYSICAL EXAM Vital Signs: 10/22/2016 10:31 BP: 124/65. HR: 74. RR: 20. O2 saturation: 99%. 10/22/2016 10:08 BP: 126/56. HR: 87. RR: 20. O2 saturation: 96%. Temp: 97.7 F. Pain level now: 9/10. Blood pressure normal. Oxygen saturation normal. Appearance: Alert. Oriented X3. No acute distress. CVS: Normal heart rate and rhythm. Heart sounds normal. Pulses normal. Respiratory: No respiratory distress. Breath sounds normal. No rales, rhonchi or wheezes. Abdomen: Soft and nontender. Bowel sounds normal. No mass. Rectal: (external hemorrhoids. sutures around the anus are intact. wound is dry. no bleeding. no signs of infection. no crepitus. no masses. exam performed with Michelle MORA at all times.). Skin: Skin warm and dry. Normal skin color. No rash. Normal skin turgor. Extremities: Extremities exhibit normal ROM. No lower extremity edema. LABS, X-RAYS, AND EKG Laboratory Tests: UA-Culture if indicated: (CHRISTI: 10/22/2016 10:20) ( [facility] 10/22/2016 11:14) Final results Test Result Flag Units (Reference) URINE COLOR YELLOW URINE APPEARANCE SL CLOUDY URINE GLUCOSE NEGATIVE (NEGATIVE) URINE BILIRUBIN NEGATIVE (NEGATIVE) URINE KETONE NEGATIVE (NEGATIVE) URINE SPECIFIC GRAVITY 1.015 (1.010-1.030) URINE PH 6.5 (5.0-8.0) URINE PROTEIN NEGATIVE (NEGATIVE) URINE UROBILINOGEN 0.2 EU/dL (0.2-1.0) URINE NITRITE NEGATIVE (NEGATIVE) URINE BLOOD NEGATIVE (NEGATIVE) URINE [place]UK ESTERASE NEGATIVE (NEGATIVE) URINE RBC NONE SEEN rbc/hpf (0-1) URINE WBC NONE SEEN wbc/hpf (0-1) URINE EPITHELIAL CELLS 10-15 EPI/hpf (0-5) URINE BACTERIA MODERATE (2+ TO 3+) (NONE SEEN) URINE COMMENT CULTURE INDICATED 2+ CALCIUM OXALATEURINE CULTURES ARE SET-UP BASED ON THE FOLLOWING CRITERIA:POSITIVE NITRITEPOSITIVE LEUKOCYTE ESTERASEGREATER THAN 10 WHITE BLOOD CELLSMODERATE (2+) OR GREATER BACTERIA CBC w Diff: (CHRISTI: 10/22/2016 10:55) ( [facility] 10/22/2016 11:06) Final results Test Result Flag Units (Reference) WHITE BLOOD COUNT 9.9 K/uL (4.5-11.5) RED BLOOD COUNT 4.08 M/uL (4.00-5.20) HEMOGLOBIN 9.8 L gm/dL (12.0-16.0) HEMATOCRIT 30.2 L % (36.0-46.0) MEAN CELL VOLUME 74 L fL (80-100) MEAN CORPUSCULAR HGB 24 L pg (26-34) MEAN CORPUSCULAR HGB CONC 32 g/dL (31-37) RED CELL DISTRIBUTION WIDTH 15.7 H % (11.6-14.8) PLATELET COUNT 419 H K/uL (150-400) NEUTROPHIL % 77.8 H % (50-75) LYMPH % 14.8 L % (25-40) MONO % 6.3 % (3-14) EOSINOPHIL % 0.9 % (0-4) BASOPHIL % 0.2 % (0-2) CMP: (CHRISTI: 10/22/2016 10:55) ( MsgRcvd 10/22/2016 11:20) Final results Test Result Flag Units (Reference) GLUCOSE 99 mg/dL (70-110) BUN 10 mg/dL (7-18) CREATININE 0.8 mg/dL (0.6-1.3) Estimated GFR >60 mL/min Estimated GFR- >60 mL/min Note: Persistent reduction over 3 months in eGFR<60 mL/min/1.73 m2 defines CKD. Patients with eGFR values>=60 mL/min/1.73 m2 may also have CKD if evidence ofpersistent proteinuria. Additional information may be foundat www.kidney.org. SODIUM 140 mmol/L (136-145) POTASSIUM 4.1 mmol/L (3.5-5.1) CHLORIDE 102 mmol/L (98-107) CARBON DIOXIDE 28 mmol/L (21-32) CALCIUM 8.7 mg/dL (8.5-10.1) TOTAL PROTEIN 7.4 g/dL (6.4-8.2) ALBUMIN 3.4 g/dL (3.3-5.0) BILIRUBIN, TOTAL 0.2 mg/dL (0.0-1.0) ALKALINE PHOSPHATASE 117 H U/L (46-116) AST (SGOT) 11 L U/L (15-37) ALT (SGPT) 20 U/L (12-78) . PROGRESS AND PROCEDURES Course of Care: patient with recent surgery present for evaluation of pain in that same area. On examination, patient with external hemorrhoids. No signs of infection. Laboratory studies and been ordered. Patient is agreeable to the treatment and plan. The patient's workup was unremarkable for the findings above.. UA with heavy skin contamination. Doubt UTI. Patient's pain is significantly improved while here in the emergency department. Patient states that she does have some of the lidocaine at home however has not tried it yet. Discussed with the patient workup here in the emergency department including diagnosis, home care, follow-up, and return precautions. All questions have been answered. The patient expressed understanding of these instructions and was agreeable to them. Disposition: Discharged. Condition: good. CLINICAL IMPRESSION Moderate nausea with vomiting. Wound check Acute pain(rectal). INSTRUCTIONS (please use your topical lidocaine as directed). Warnings: GENERAL WARNINGS: Return or contact your physician immediately if your condition worsens or changes unexpectedly, if not improving as expected, or if other problems arise. Specifically return if pain, vomiting, bleeding, breathing difficulty or fever. Your Current Medications: CONTINUE TAKING THE FOLLOWING MEDICATIONS: Aylin-D Allergy & Congestion Oral. Fiber Oral. Flonase Nasal. Glucosamine Oral. Omeprazole Oral. Percocet Oral : 5/325 mg PRN. Stool Softener Oral. Tramadol HCL Oral : 50 mg 4x a day. Prescription Medications: Zofran. Dispense ten (10). No refill. Substitution is permissible. Percocet 5 mg/325 mg: take 1 tablet orally every 6 hours as needed for pain. Dispense fifteen (15). No refill. Substitution is permissible. Follow-up: Return to the emergency department as needed. Follow up with your doctor in two days. Reason for referral: recheck today's concerns. Summary of care provided to patient and family via paper. Screening today revealed the patient's blood pressure to be in the normal range. The patient should follow up with a primary care provider for blood pressure management. Understanding of the discharge instructions verbalized by patient. (Electronically signed by Liban Velasco Dr. 10/24/2016 6:58)
--- NOTE | 2016-10-22 12:04 | ED ORDER SUMMARY ---
..... Patient: MARIANNE PERKINS OrderSheet [facility] VisitID: [id number] [place] [address] 51y, F Registration Date/Time: 10/22/2016 ORDER SHEET Weight: 96.6 kg (stated) Allergies: Bactrim GENERAL ORDERS: CBC w Diff Urgent (10:47 10/22/2016 Radha Yen) (Ack 10:49 PWeiler ER Tech1) (11:17 PWeiler ER Tech1) CMP Urgent (10:47 10/22/2016 Radha Yen) (Ack 10:49 PWeiler ER Tech1) (11:17 PWeiler ER Tech1) UA-Culture if indicated Urgent (10:47 10/22/2016 Radha Yen) (Ack 10:49 PWeiler ER Tech1) (10:49 PWeiler ER Tech1) MEDICATION ORDERS: Percocet PO 5/325 mg (HIGH ALERT MEDICATION, NOW) (10:46 10/22/2016 Radha Yen) (11:03 SRobergarcia R.N.) Lidocaine Topical 1 application (NOW) (10:46 10/22/2016 Radha Yen) (11:02 SRoberts R.N.) Zofran ODT PO 4 mg (NOW) (10:47 10/22/2016 Radha Yen) (11:01 SRobergarcia R.N.) IV FLUIDS: ORDER SHEET NOTES: [Electronically signed by Michelle Morales R.N. (13:20 10/22/2016)] [Electronically signed by Michelle Morales R.N. (13:21 10/22/2016)] [Electronically signed by Liban Velasco Dr. (06:58 10/24/2016)] [Electronically locked/signed by Michelle Morales R.N. (13:20 10/22/2016)]
--- NOTE | 2016-10-22 12:04 | ED ORDER SUMMARY ---
..... Patient: MARIANNE PERKINS OrderSheet [facility] VisitID: [id number] [place] [address] 51y, F Registration Date/Time: 10/22/2016 ORDER SHEET Weight: 96.6 kg (stated) Allergies: Bactrim GENERAL ORDERS: CBC w Diff Urgent (10:47 10/22/2016 Radha Yen) (Ack 10:49 PWeiler ER Tech1) (11:17 PWeiler ER Tech1) CMP Urgent (10:47 10/22/2016 Radha Yen) (Ack 10:49 PWeiler ER Tech1) (11:17 PWeiler ER Tech1) UA-Culture if indicated Urgent (10:47 10/22/2016 Radha Yen) (Ack 10:49 PWeiler ER Tech1) (10:49 PWeiler ER Tech1) MEDICATION ORDERS: Percocet PO 5/325 mg (HIGH ALERT MEDICATION, NOW) (10:46 10/22/2016 Radha Yen) (11:03 SRobergarcia R.N.) Lidocaine Topical 1 application (NOW) (10:46 10/22/2016 Radha Yen) (11:02 SRoberts R.N.) Zofran ODT PO 4 mg (NOW) (10:47 10/22/2016 Radha Yen) (11:01 SRobergarcia R.N.) IV FLUIDS: ORDER SHEET NOTES: [Electronically signed by Mcihelle Morales R.N. (13:20 10/22/2016)] [Electronically signed by Michelle Morales R.N. (13:21 10/22/2016)] [Electronically signed by Liban Velasco Dr. (06:58 10/24/2016)] [Electronically locked/signed by Michelle Morales R.N. (13:20 10/22/2016)]
--- NOTE | 2016-10-24 06:59 | ED MED RECONCILIATION SUMMARY ---
Patient: MARIANNE PERKINS Medication Reconciliation Report [facility] VisitID: [id number] [address] [place] [address] 51y, F Registration Date/Time: 10/22/2016 Weight: 96.6 kg Height/Length: 62 in. BMI: 39.0 ALLERGIES: Bactrim The patient's Home Medications are listed below: CONTINUE TAKING THE FOLLOWING MEDICATIONS: Aylin-D Allergy & Congestion Oral Fiber Oral Flonase Nasal Glucosamine Oral Omeprazole Oral Percocet Oral 5/325 mg, PRN Stool Softener Oral Tramadol HCL Oral 50 mg, 4x a day The source(s) of the original Home Medication information: patient The following Medications were given to the patient in the Emergency Department: Zofran ODT [PO] PO 4 mg, administered: 10/22/2016 10:51:00 AM Lidocaine [Topical] Topical 1 application, administered: 10/22/2016 10:52:00 AM Percocet [PO] PO 1 tab, administered: 10/22/2016 10:52:00 AM The following Medications were prescribed to the patient: Zofran. Dispense ten (10). No refill. Substitution is permissible. -- Liban Velasco Dr. Percocet 5 mg/325 mg: take 1 tablet orally every 6 hours as needed for pain. Dispense fifteen (15). No refill. Substitution is permissible. -- Liban Velasco Dr.
--- NOTE | 2016-10-24 06:59 | ED DISCHARGE INSTRUCTIONS ---
Patient: MARIANNE PERKINS General Instructions [facility] VisitID: [id number] [place] [address] 51y, F Registration Date/Time: 10/22/2016 Moderate nausea with vomiting. Wound check Acute pain(rectal). INSTRUCTIONS (please use your topical lidocaine as directed). Warnings: GENERAL WARNINGS: Return or contact your physician immediately if your condition worsens or changes unexpectedly, if not improving as expected, or if other problems arise. Specifically return if pain, vomiting, bleeding, breathing difficulty or fever. Your Current Medications: CONTINUE TAKING THE FOLLOWING MEDICATIONS: Aylin-D Allergy & Congestion Oral. Fiber Oral. Flonase Nasal. Glucosamine Oral. Omeprazole Oral. Percocet Oral : 5/325 mg PRN. Stool Softener Oral. Tramadol HCL Oral : 50 mg 4x a day. Prescription Medications: Zofran. Dispense ten (10). No refill. Substitution is permissible. Percocet 5 mg/325 mg: take 1 tablet orally every 6 hours as needed for pain. Dispense fifteen (15). No refill. Substitution is permissible. Follow-up: Return to the emergency department as needed. Follow up with your doctor in two days. Reason for referral: recheck today's concerns. Summary of care provided to patient and family via paper. Screening today revealed the patient's blood pressure to be in the normal range. The patient should follow up with a primary care provider for blood pressure management. Understanding of the discharge instructions verbalized by patient. ADDITIONAL INFORMATION Pain, Uncertain Cause [Acute] Pain is the bodys way of calling attention to a problem. Pain can be caused by many conditions - some minor, some serious. In your case, we were not able to find the exact cause for your pain. However, at this time there is no sign of any serious or life-threatening illness causing your pain. Sometimes more tests will be needed to determine the cause. Other times, just allowing more time to pass will either make it clear what the problem is, or the pain will go away by itself. Home Care: You may use acetaminophen (Tylenol) or ibuprofen (Motrin, Advil) to control pain, unless another medicine was prescribed. [NOTE: If you have chronic liver or kidney disease or ever had a stomach ulcer or GI bleeding, talk with your doctor before using these medicines.] Follow Up with your doctor or as advised by our staff. Get Prompt Medical Attention if any of the following occur: Changes in the pattern of your pain Appearance of new symptoms Fever of 100.4F (38C) or higher, or as directed by your healthcare provider Wound Check, No Infection Your laceration is healing as expected. There is no infection. Home care The following guidelines will help you care for your wound at home: Keep the wound clean and dry. If you were given a bandage, you may change it daily as follows: After removing the bandage, wash the area with soap and water. Use a wet cotton swab to loosen and remove any blood or crust that forms. After cleaning, apply a thin layer of antibiotic ointment. This will keep the wound clean and make it easier to remove the stitches. Reapply a fresh bandage. You may remove the bandage to shower as usual after the first 24 hours, but do not soak the area in water (no swimming) until the sutures are removed. If surgical tape was used, keep the area clean and dry. If it becomes wet, blot it dry with a towel. Follow-up care If sutures or gordo are in place, it is important to keep your appointment for removal. If they are left in place too long permanent holland may remain. If surgical tape closures were applied, you may remove them yourself if they have not fallen of by 10 days after the injury. When to seek medical care Get prompt medical attention if any of the following occur: Increasing pain in the wound Redness, swelling, or pus coming from the wound Fever of 100.4F (38C) or higher, or as directed by your health care provider If sutures or gordo come apart or fall out before your next appointment If the surgical tape closures fall off within seven days, or the wound edges re-open Ondansetron Oral disintegrating tablet What is this medicine? ONDANSETRON (on DONAVON se marylu) is used to treat nausea and vomiting caused by chemotherapy. It is also used to prevent or treat nausea and vomiting after surgery. How should I use this medicine? These tablets are made to dissolve in the mouth. Do not try to push the tablet through the foil backing. With dry hands, peel away the foil backing and gently remove the tablet. Place the tablet in the mouth and allow it to dissolve, then swallow. While you may take these tablets with water, it is not necessary to do so. Talk to your [employer] control regarding the use of this medicine in children. Special care may be needed. What side effects may I notice from receiving this medicine? Side effects that you should report to your doctor or health complex care nurse practitioner as soon as possible: allergic reactions like skin rash, itching or hives, swelling of the face, lips, or tongue breathing problems dizziness fast or irregular heartbeat feeling faint or lightheaded, falls fever and chills swelling of the hands and feet tightness in the chest Side effects that usually do not require medical attention (report to your doctor or health complex care nurse practitioner if they continue or are bothersome): constipation or diarrhea headache What may interact with this medicine? Do not take this medicine with any of the following medications: -apomorphine -cisapride -dofetilide -dronedarone -pimozide -thioridazine -ziprasidone This medicine may also interact with the following medications: -carbamazepine -phenytoin -rifampicin -tramadol -other medicines that prolong the QT interval (cause an abnormal heart rhythm) What if I miss a dose? If you miss a dose, take it as soon as you can. If it is almost time for your next dose, take only that dose. Do not take double or extra doses. Where should I keep my medicine? Keep out of the reach of children. Store between 2 and 30 degrees C (36 and 86 degrees F). Throw away any unused medicine after the expiration date. What should I tell my health care provider before I take this medicine? They need to know if you have any of these conditions: heart disease history of irregular heartbeat liver disease low levels of magnesium or potassium in the blood an unusual or allergic reaction to ondansetron, granisetron, other medicines, foods, dyes, or preservatives or trying to get breast-feeding What should I watch for while using this medicine? Check with your doctor or health complex care nurse practitioner as soon as you can if you have any sign of an allergic reaction. Oxycodone Hydrochloride, Acetaminophen Oral tablet What is this medicine? ACETAMINOPHEN; OXYCODONE (a set a MINGO gogo fen; ox i KOE done) is a pain reliever. It is used to treat mild to moderate pain. How should I use this medicine? Take this medicine by mouth with a full glass of water. Follow the directions on the prescription label. Take your medicine at regular intervals. Do not take your medicine more often than directed. Talk to your [employer] control regarding the use of this medicine in children. Special care may be needed. Patients over 65 years old may have a stronger reaction and need a smaller dose. What side effects may I notice from receiving this medicine? Side effects that you should report to your doctor or health complex care nurse practitioner as soon as possible: allergic reactions like skin rash, itching or hives, swelling of the face, lips, or tongue breathing difficulties, wheezing confusion light headedness or fainting spells severe stomach pain yellowing of the skin or the whites of the eyes Side effects that usually do not require medical attention (report to your doctor or health complex care nurse practitioner if they continue or are bothersome): dizziness drowsiness nausea vomiting What may interact with this medicine? alcohol antihistamines barbiturates like amobarbital, butalbital, butabarbital, methohexital, pentobarbital, phenobarbital, thiopental, and secobarbital benztropine drugs for bladder problems like solifenacin, trospium, oxybutynin, tolterodine, hyoscyamine, and methscopolamine drugs for breathing problems like ipratropium and tiotropium drugs for certain stomach or intestine problems like propantheline, homatropine methylbromide, glycopyrrolate, atropine, belladonna, and dicyclomine general anesthetics like etomidate, ketamine, nitrous oxide, propofol, desflurane, enflurane, halothane, isoflurane, and sevoflurane medicines for depression, anxiety, or psychotic disturbances medicines for sleep muscle relaxants naltrexone narcotic medicines (opiates) for pain phenothiazines like perphenazine, thioridazine, chlorpromazine, mesoridazine, fluphenazine, prochlorperazine, promazine, and trifluoperazine scopolamine tramadol trihexyphenidyl What if I miss a dose? If you miss a dose, take it as soon as you can. If it is almost time for your next dose, take only that dose. Do not take double or extra doses. Where should I keep my medicine? Keep out of the reach of children. This medicine can be abused. Keep your medicine in a safe place to protect it from theft. Do not share this medicine with anyone. Selling or giving away this medicine is dangerous and against the law. Store at room temperature between 20 and 25 degrees C (68 and 77 degrees F). Keep container tightly closed. Protect from light. This medicine may cause accidental overdose and if it is taken by other adults, children, or pets. Flush any unused medicine down the toilet to reduce the chance of harm. Do not use the medicine after the expiration date. What should I tell my health care provider before I take this medicine? They need to know if you have any of these conditions: brain tumor Crohn's disease, inflammatory bowel disease, or ulcerative colitis drink more than 3 alcohol containing drinks per day drug abuse or addiction head injury heart or circulation problems kidney disease or problems going to the bathroom liver disease lung disease, asthma, or breathing problems an unusual or allergic reaction to acetaminophen, oxycodone, other opioid analgesics, other medicines, foods, dyes, or preservatives or trying to get breast-feeding What should I watch for while using this medicine? Tell your doctor or health complex care nurse practitioner if your pain does not go away, if it gets worse, or if you have new or a different type of pain. You may develop tolerance to the medicine. Tolerance means that you will need a higher dose of the medication for pain relief. Tolerance is normal and is expected if you take this medicine for a long time. Do not suddenly stop taking your medicine because you may develop a severe reaction. Your body becomes used to the medicine. This does NOT mean you are addicted. Addiction is a behavior related to getting and using a drug for a non-medical reason. If you have pain, you have a medical reason to take pain medicine. Your doctor will tell you how much medicine to take. If your doctor wants you to stop the medicine, the dose will be slowly lowered over time to avoid any side effects. You may get drowsy or dizzy. Do not drive, use machinery, or do anything that needs mental alertness until you know how this medicine affects you. Do not stand or sit up quickly, especially if you are an older patient. This reduces the risk of dizzy or fainting spells. Alcohol may interfere with the effect of this medicine. Avoid alcoholic drinks. There are different types of narcotic medicines (opiates) for pain. If you take more than one type at the same time, you may have more side effects. Give your health care provider a list of all medicines you use. Your doctor will tell you how much medicine to take. Do not take more medicine than directed. Call emergency for help if you have problems breathing. The medicine will cause constipation. Try to have a bowel movement at least every 2 to 3 days. If you do not have a bowel movement for 3 days, call your doctor or health complex care nurse practitioner. Do not take Tylenol (acetaminophen) or medicines that have acetaminophen with this medicine. Too much acetaminophen can be very dangerous. Many nonprescription medicines contain acetaminophen. Always read the labels carefully to avoid taking more acetaminophen. You have been given the following additional information: Pain, Uncertain Cause (Acute) Wound Check, Lac F/U (No Infection) Ondansetron Oral disintegrating tablet Oxycodone Hydrochloride, Acetaminophen Oral tablet (Electronically signed by Liban Velasco Dr. 10/24/2016 6:58)
--- NOTE | 2016-10-24 06:59 | ED MED RECONCILIATION SUMMARY ---
Patient: MARIANNE PERKINS Medication Reconciliation Report [facility] VisitID: [id number] [address] [place] [address] 51y, F Registration Date/Time: 10/22/2016 Weight: 96.6 kg Height/Length: 62 in. BMI: 39.0 ALLERGIES: Bactrim The patient's Home Medications are listed below: CONTINUE TAKING THE FOLLOWING MEDICATIONS: Aylin-D Allergy & Congestion Oral Fiber Oral Flonase Nasal Glucosamine Oral Omeprazole Oral Percocet Oral 5/325 mg, PRN Stool Softener Oral Tramadol HCL Oral 50 mg, 4x a day The source(s) of the original Home Medication information: patient The following Medications were given to the patient in the Emergency Department: Zofran ODT [PO] PO 4 mg, administered: 10/22/2016 10:51:00 AM Lidocaine [Topical] Topical 1 application, administered: 10/22/2016 10:52:00 AM Percocet [PO] PO 1 tab, administered: 10/22/2016 10:52:00 AM The following Medications were prescribed to the patient: Zofran. Dispense ten (10). No refill. Substitution is permissible. -- Liban Velasco Dr. Percocet 5 mg/325 mg: take 1 tablet orally every 6 hours as needed for pain. Dispense fifteen (15). No refill. Substitution is permissible. -- Liban Velasco Dr.
--- NOTE | 2016-10-24 06:59 | ED MAR SUMMARY ---
..... Medication Administration Record [facility] [address] [place] [address] Patient: MARIANNE PERKINS Visit ID: [id number] 51y, F Weight: 96.6 kg Height/Length: 62 in BMI: 39 ALLERGIES: Bactrim Given 10:51 10/22/2016 Michelle Morales R.N. Medication Administered: ZOFRAN ODT [PO] (ONDANSETRON), Dose: 4 mg PO. Medication Ordered: Zofran ODT PO 4 mg (NOW). Given 10:52 10/22/2016 Michelle Morales R.N. Medication Administered: PERCOCET [PO] (OXYCODONE-ACETAMINOPHEN), Dose: 1 tab 5/325 mg Tablets PO. Medication Ordered: Percocet PO 5/325 mg (HIGH ALERT MEDICATION, NOW). Given 10:52 10/22/2016 Michelle Morales R.NAubree Medication Administered: LIDOCAINE [TOPICAL], Dose: 1 application Topical. Medication Ordered: Lidocaine Topical 1 application (NOW).
--- NOTE | 2016-10-24 06:59 | ED MAR SUMMARY ---
..... Medication Administration Record [facility] [address] [place] [address] Patient: MARIANNE PERKINS Visit ID: [id number] 51y, F Weight: 96.6 kg Height/Length: 62 in BMI: 39 ALLERGIES: Bactrim Given 10:51 10/22/2016 Michelle Morales R.N. Medication Administered: ZOFRAN ODT [PO] (ONDANSETRON), Dose: 4 mg PO. Medication Ordered: Zofran ODT PO 4 mg (NOW). Given 10:52 10/22/2016 Michelle Morales R.N. Medication Administered: PERCOCET [PO] (OXYCODONE-ACETAMINOPHEN), Dose: 1 tab 5/325 mg Tablets PO. Medication Ordered: Percocet PO 5/325 mg (HIGH ALERT MEDICATION, NOW). Given 10:52 10/22/2016 Michelle Morales R.NAubree Medication Administered: LIDOCAINE [TOPICAL], Dose: 1 application Topical. Medication Ordered: Lidocaine Topical 1 application (NOW).
== END 2016-10-22 12:15 | disposition home or self-care (01) ==
LOC: ED SRH 09:57
DX: K62.89 Other specified diseases of anus and rectum (principal); Z98.890 Other specified postprocedural states; R11.2 Nausea with vomiting, unspecified; Z79.891 Long term (current) use of opiate analgesic; Z79.899 Other long term (current) drug therapy; Z88.1 Allergy status to other antibiotic agents
CPT/HCPCS: 90004; 90074; 90100; 90469; 95059

== ENCOUNTER 2016-10-30 22:43 | Emergency (ER) | payer BC ==
--- NOTE | 2016-10-31 02:47 | ED CLINICAL REPORT ---
Clinical Report - Physicians/Mid Levels [facility] [address] [place] [address] 10/30/2016 22:45 Patient: MARIANNE PERKINS Time Seen: 23:15; initial patient contact. Arrived- By private vehicle. Historian- patient. HISTORY OF PRESENT ILLNESS Chief Complaint: RECTAL PAIN. This started about 1 week ago, has been moderate and is still present. The patient has not had dark stools or rectal bleeding. She has had rectal pain, constipation, hard stools and nausea. No vomiting, diarrhea or abdominal pain. Similar symptoms previously: None. Recent medical care: Not recently seen/assessed. REVIEW OF SYSTEMS No fainting episodes, weakness or fever. No complaint of rectal foreign body. She has had no rectal intercourse. All systems otherwise negative, except as recorded above. PAST HISTORY Nausea. Wound Check. Acute Pain. Anaal fissure . UTI - Urinary Tract Infection. Hemorrhoids. Rectal Bleed. SURGERIES: Ablation. Anal fissure . C section. Cervical oblaion. Cyst removal . Sinus Surgery. Tonsillectomy. Tubal Ligation. Tympanostomy Tubes. Rectal fissure repair. -. SOCIAL HISTORY Never smoker. No alcohol use or drug use. ADDITIONAL NOTES The nursing notes have been reviewed. PHYSICAL EXAM Vital Signs: 10/30/2016 22:50 BP: 150/76. HR: 89. RR: 22. O2 saturation: 100%. Temp: 98.1 F. Pain level now: 8/10. Have been reviewed. Hypertensive. Heart rate normal. Tachypneic. Temperature normal. Oxygen saturation normal. Appearance: Alert. Oriented X3. No acute distress. ENT: Pharynx normal. CVS: Normal heart rate and rhythm. Heart sounds normal. Respiratory: No respiratory distress. Breath sounds normal. Abdomen: Soft. Mild tenderness diffusely. No guarding or rebound tenderness. Bowel sounds normal. No organomegaly. No mass. Distention with tympany to percussion and dullness to percussion. Rectal: (deferred). Skin: Skin warm and dry. Normal skin color. Neuro: Oriented X 3. LABS, X-RAYS, AND EKG KUB: Increased stool present. Views: erect AP. Technique: good. The X-rays were independently viewed by me and interpreted contemporaneously by me. Prior films were not available for comparison. PROGRESS AND PROCEDURES Course of Care: Pt had a large BM after enema and feels much better. Disposition: Discharged home in good and improved condition. Condition: good. CLINICAL IMPRESSION Constipation INSTRUCTIONS Your Current Medications: CONTINUE TAKING THE FOLLOWING MEDICATIONS: Aylin-D Allergy & Congestion Oral. Fiber Oral. Flonase Nasal. Glucosamine Oral. Milk of mag x 2*. Omeprazole Oral. Percocet Oral : 5/325 mg PRN. Stool Softener Oral. zofran 4mg ODT for nausea *. Prescription Medications: Miralax: take 1 package mixed in 8 ounces water or juice every day as needed for constipation. Dispense one (1) twelve pack. No refills. Substitution is permissible. Follow-up: Follow up with your doctor in about two days. Call for an appointment. Screening today revealed the patient's blood pressure to be in the hypertensive range. The patient should follow up with a primary care provider for blood pressure management. (Electronically signed by Torres Alex Dr. 11/01/2016 5:46)
--- NOTE | 2016-10-31 02:47 | ED ORDER SUMMARY ---
..... Patient: MARIANNE PERKINS OrderSheet [facility] VisitID: [id number] [place] [address] 51y, F Registration Date/Time: 10/30/2016 ORDER SHEET Weight: 97.0 kg (stated) Allergies: Latex, NKDA GENERAL ORDERS: Abdomen 1V Urgent (00:19 10/31/2016 Todd Yen) (Ack 0:23 Mariama) (0:48 oTny) MEDICATION ORDERS: Bentyl PO 20 mg (NOW) (01:16 10/31/2016 Todd Yen) (Ack 1:16 Jennifer R.N.) (1:23 PEARLolldeborah R.N.) Zofran ODT PO 4 mg (NOW) (01:17 10/31/2016 Todd Yen) (1:23 Jennifer R.N.) IV FLUIDS: Zofran IV 4 mg (NOW) (01:15 10/31/2016 Todd Yen) (Ack 1:16 PEARLolldeborah R.N.) (Cancelled: Physician Order1:17 Todd Yen) ORDER SHEET NOTES: [Electronically signed by Antonette Matt R.N. (23:01 10/31/2016)] [Electronically signed by Torres Alex Dr. (05:46 11/01/2016)] [Electronically locked/signed by Antonette Matt R.N. (23:10/31/2016)]
--- NOTE | 2016-10-31 02:47 | ED CLINICAL REPORT ---
Clinical Report - Physicians/Mid Levels [facility] [address] [place] [address] 10/30/2016 22:45 Patient: MARIANNE PERKINS Time Seen: 23:15; initial patient contact. Arrived- By private vehicle. Historian- patient. HISTORY OF PRESENT ILLNESS Chief Complaint: RECTAL PAIN. This started about 1 week ago, has been moderate and is still present. The patient has not had dark stools or rectal bleeding. She has had rectal pain, constipation, hard stools and nausea. No vomiting, diarrhea or abdominal pain. Similar symptoms previously: None. Recent medical care: Not recently seen/assessed. REVIEW OF SYSTEMS No fainting episodes, weakness or fever. No complaint of rectal foreign body. She has had no rectal intercourse. All systems otherwise negative, except as recorded above. PAST HISTORY Nausea. Wound Check. Acute Pain. Anaal fissure . UTI - Urinary Tract Infection. Hemorrhoids. Rectal Bleed. SURGERIES: Ablation. Anal fissure . C section. Cervical oblaion. Cyst removal . Sinus Surgery. Tonsillectomy. Tubal Ligation. Tympanostomy Tubes. Rectal fissure repair. -. SOCIAL HISTORY Never smoker. No alcohol use or drug use. ADDITIONAL NOTES The nursing notes have been reviewed. PHYSICAL EXAM Vital Signs: 10/30/2016 22:50 BP: 150/76. HR: 89. RR: 22. O2 saturation: 100%. Temp: 98.1 F. Pain level now: 8/10. Have been reviewed. Hypertensive. Heart rate normal. Tachypneic. Temperature normal. Oxygen saturation normal. Appearance: Alert. Oriented X3. No acute distress. ENT: Pharynx normal. CVS: Normal heart rate and rhythm. Heart sounds normal. Respiratory: No respiratory distress. Breath sounds normal. Abdomen: Soft. Mild tenderness diffusely. No guarding or rebound tenderness. Bowel sounds normal. No organomegaly. No mass. Distention with tympany to percussion and dullness to percussion. Rectal: (deferred). Skin: Skin warm and dry. Normal skin color. Neuro: Oriented X 3. LABS, X-RAYS, AND EKG KUB: Increased stool present. Views: erect AP. Technique: good. The X-rays were independently viewed by me and interpreted contemporaneously by me. Prior films were not available for comparison. PROGRESS AND PROCEDURES Course of Care: Pt had a large BM after enema and feels much better. Disposition: Discharged home in good and improved condition. Condition: good. CLINICAL IMPRESSION Constipation INSTRUCTIONS Your Current Medications: CONTINUE TAKING THE FOLLOWING MEDICATIONS: Aylin-D Allergy & Congestion Oral. Fiber Oral. Flonase Nasal. Glucosamine Oral. Milk of mag x 2*. Omeprazole Oral. Percocet Oral : 5/325 mg PRN. Stool Softener Oral. zofran 4mg ODT for nausea *. Prescription Medications: Miralax: take 1 package mixed in 8 ounces water or juice every day as needed for constipation. Dispense one (1) twelve pack. No refills. Substitution is permissible. Follow-up: Follow up with your doctor in about two days. Call for an appointment. Screening today revealed the patient's blood pressure to be in the hypertensive range. The patient should follow up with a primary care provider for blood pressure management. (Electronically signed by Torres Alex Dr. 11/01/2016 5:46)
--- NOTE | 2016-10-31 02:47 | ED ORDER SUMMARY ---
..... Patient: MARIANNE PERKINS OrderSheet [facility] VisitID: [id number] [place] [address] 51y, F Registration Date/Time: 10/30/2016 ORDER SHEET Weight: 97.0 kg (stated) Allergies: Latex, NKDA GENERAL ORDERS: Abdomen 1V Urgent (00:19 10/31/2016 Todd Yen) (Ack 0:23 Mariama) (0:48 Tony) MEDICATION ORDERS: Bentyl PO 20 mg (NOW) (01:16 10/31/2016 Todd Yen) (Ack 1:16 Jennifer R.N.) (1:23 PEARLolldeborah R.N.) Zofran ODT PO 4 mg (NOW) (01:17 10/31/2016 Todd Yen) (1:23 Jennifer R.N.) IV FLUIDS: Zofran IV 4 mg (NOW) (01:15 10/31/2016 Todd Yen) (Ack 1:16 PEARLolldeborah R.N.) (Cancelled: Physician Order1:17 Todd Yen) ORDER SHEET NOTES: [Electronically signed by Antonette Matt R.N. (23:01 10/31/2016)] [Electronically signed by Torres Alex Dr. (05:46 11/01/2016)] [Electronically locked/signed by Antonette Matt R.N. (23:10/31/2016)]
--- NOTE | 2016-10-31 02:47 | ED NURSING NOTES ---
Clinical Report - Nurses [facility] [address] [place] [address] 10/30/2016 22:45 Patient: MARIANNE PERKINS TRIAGE Triage time 2250. Acuity: LEVEL 3. Chief Complaint: (pt had surgery for rectal fiss[address] Rocha. was seen at offoice today and told to use Milk of Mag. has had no relief, pain is getting much worse- stte she can"feel a fecal ball thru my vagina "). 22:50. --23:04 Libby Ruelas R.N. 22:50 10/30/16. BP: 150/76. HR: 89. RR: 22. O2 saturation: 100%. Temp: 98.1 F. Pain level now: 11/28. --23:04 Libby Ruelas R.N. Weight: 97 kg stated. Height/Length: 62 inches Per Patient. BMI: 39.2. --23:01 Libby Ruelas R.N. Medications Aylin-D Allergy & Congestion Oral. Fiber Oral. Flonase Nasal. Glucosamine Oral. Omeprazole Oral. Percocet Oral 5/325 mg, PRN. Stool Softener Oral. --22:59 Libby Ruelas R.N. Milk of mag x 2. --22:59 Libby Ruelas R.N. zofran 4mg ODT for nausea . --23:00 Libby Ruelas R.N. Allergies Latex. --23:00 Libby Ruelas R.N. NKDA. --23:00 Libby Ruelas R.N. The following entry was struck by Libby Ruelas R.N., 23:00 (10/30/16) Reason - other. <<STRICKEN ENTRY-- Bactrim. --22:59 Libby Ruelas R.N. --END STRIKE>>. History Arrived by private vehicle. Historian: patient. Accompanied by spouse. Primary physician (deborah rocha PCPpeter). The patient has had abdominal pain. PAST MEDICAL HX: The patient is post-menopausal. SOCIAL HX: Never smoker. No alcohol use or drug use. --23:04 Libby Ruelas R.N. PROBLEMS: Nausea. Wound Check. Acute Pain. Anaal fissure . UTI - Urinary Tract Infection. Hemorrhoids. Rectal Bleed. --23:02 Libby Ruelas R.N. ADDITIONAL SURGERIES: Ablation. Anal fissure . C section. Cervical oblaion. Cyst removal . Sinus Surgery. Tonsillectomy. Tubal Ligation. Tympanostomy Tubes. --23:02 Libby Ruelas R.N. Rectal fissure repair. --23:02 Libby Ruelas R.N. Interventions ID band on patient. To treatment room. --23:04 Libby Ruelas R.N. PHYSICAL ASSESSMENT 22:50. Ambulatory to room. Patient gowned. GENERAL / NEURO / PSYCH: Alert. Oriented X 4. Appears in pain and in distress. RESPIRATORY: Respirations not labored. CVS: Capillary refill less than 2 seconds. GI / : Abdominal distention (cramping pain). SKIN: Skin is warm and dry. --23:05 Libby Ruelas R.N. NURSING PROGRESS NOTES 22:50. Patient gowned. Head of bed elevated. Reassurance given. Patient identifiers checked. Call light placed in reach. Side rails up. Bed placed in lowest position. Patient ready for evaluation- chart flagged. --23:05 Libby Ruelas R.N. Care transferred and report received. --23:37 Antonette Matt R.N. Patient transported to radiology by stretcher with tech. (00:39). --00:39 Antonette Matt R.N. 01:20 10/31/2016 Zofran ODT (Ondansetron) PO Oral Disintegrating Tablets 4 mg given. Allergies verified and confirmed 5 rights. --01:23 Antonette Matt R.N. 01:21 10/31/2016 Bentyl (Dicyclomine HCl) PO Tablets 20 mg given. Allergies verified and confirmed 5 rights. --01:23 Antonette Matt R.N. Fleets enema given, patient tolerated the procedure well. (mineral oil Fleets enema placed in pts rectum, pt laying on left side and asked to hold solution for 15-20min, if possible.). ( commode placed at bedside for pt use.). --02:20 Antonette Matt R.N. ( Pt up to BSC with large amount of formed and watery stool. pt states she feels much better and is ready to go home. EDMD aware.). --02:47 Antonette Matt R.N. DISPOSITION / DISCHARGE Condition at departure: improved and stable. No learning barriers present. Discharge instructions provided and reviewed with the patient. Reviewed medication(s) side effects, precautions, dosing and course information. Prescription(s) given to the patient. Patient verbalized understanding. Written instructions provided in Persian. The patient was discharged home and accompanied by spouse. She left the Emergency Department ambulatory and via private vehicle. Spouse driving. --02:55 Antonette Matt R.N. 02:54 10/31/16. BP: 137/47. HR: 83. RR: 15. O2 saturation: 99% on room air. Temp: deferred. Pain level now: 04/30. --02:55 Antonette Matt R.N. Locked/Released at 10/31/2016 23:01 by Antonette Matt R.N.
--- NOTE | 2016-10-31 06:46 | DIAGNOSTIC IMAGING REPORT ---
PROCEDURE: XR ABDOMEN 1 VIEW INDICATION: CONSTIPATION TECHNIQUE: Single view supine abdomen. COMPARISON: None. FINDINGS: Nonspecific, nonobstructive bowel gas pattern. Mildly increased amount of stool in the rectum. No suspicious mass effect. 8 mm rectangular density in the left mid abdomen, uncertain etiology, potentially external to the patient. Osseous structures are intact. Mild degenerative disc height loss L4- 5. IMPRESSION: 1. Slightly increased amount of rectal stool. 2. No other significant obstipation.
--- NOTE | 2016-11-01 05:48 | ED MAR SUMMARY ---
..... Medication Administration Record [facility] [address] [place] [address] Patient: MARIANNE PERKINS Visit ID: [id number] 51y, F Weight: 97.0 kg Height/Length: 62 in BMI: 39.2 ALLERGIES: NKDA, Latex Given 01:20 10/31/2016 Antonette Matt, RAubreeN. Medication Administered: ZOFRAN ODT [PO] (ONDANSETRON), Dose: 4 mg Oral Disintegrating Tablets PO. Medication Ordered: Zofran ODT PO 4 mg (NOW). Given 01:21 10/31/2016 Antonette Matt, R.N. Medication Administered: BENTYL [PO] (DICYCLOMINE HCL), Dose: 20 mg Tablets PO. Medication Ordered: Bentyl PO 20 mg (NOW).
--- NOTE | 2016-11-01 05:48 | ED MAR SUMMARY ---
..... Medication Administration Record [facility] [address] [place] [address] Patient: MARIANNE PERKINS Visit ID: [id number] 51y, F Weight: 97.0 kg Height/Length: 62 in BMI: 39.2 ALLERGIES: NKDA, Latex Given 01:20 10/31/2016 Antonette Matt, RAubreeN. Medication Administered: ZOFRAN ODT [PO] (ONDANSETRON), Dose: 4 mg Oral Disintegrating Tablets PO. Medication Ordered: Zofran ODT PO 4 mg (NOW). Given 01:21 10/31/2016 Antonette Matt, R.N. Medication Administered: BENTYL [PO] (DICYCLOMINE HCL), Dose: 20 mg Tablets PO. Medication Ordered: Bentyl PO 20 mg (NOW).
--- NOTE | 2016-11-01 05:48 | ED MED RECONCILIATION SUMMARY ---
Patient: MARIANNE PERKINS Medication Reconciliation Report [facility] VisitID: [id number] [address] [place] [address] 51y, F Registration Date/Time: 10/30/2016 Weight: 97.0 kg Height/Length: 62 in. BMI: 39.2 ALLERGIES: Latex, NKDA The patient's Home Medications are listed below: CONTINUE TAKING THE FOLLOWING MEDICATIONS: Aylin-D Allergy & Congestion Oral Fiber Oral Flonase Nasal Glucosamine Oral Milk of mag x 2 Omeprazole Oral Percocet Oral 5/325 mg, PRN Stool Softener Oral zofran 4mg ODT for nausea The source(s) of the original Home Medication information: Not obtained. The following Medications were given to the patient in the Emergency Department: Zofran ODT [PO] PO 4 mg, administered: 10/31/2016 1:20:00 AM Bentyl [PO] PO 20 mg, administered: 10/31/2016 1:21:00 AM The following Medications were prescribed to the patient: Miralax: take 1 package mixed in 8 ounces water or juice every day as needed for constipation. Dispense one (1) twelve pack. No refills. Substitution is permissible. -- Torres Alex Dr.
--- NOTE | 2016-11-01 05:48 | ED MED RECONCILIATION SUMMARY ---
Patient: MARIANNE PERKINS Medication Reconciliation Report [facility] VisitID: [id number] [address] [place] [address] 51y, F Registration Date/Time: 10/30/2016 Weight: 97.0 kg Height/Length: 62 in. BMI: 39.2 ALLERGIES: Latex, NKDA The patient's Home Medications are listed below: CONTINUE TAKING THE FOLLOWING MEDICATIONS: Aylin-D Allergy & Congestion Oral Fiber Oral Flonase Nasal Glucosamine Oral Milk of mag x 2 Omeprazole Oral Percocet Oral 5/325 mg, PRN Stool Softener Oral zofran 4mg ODT for nausea The source(s) of the original Home Medication information: Not obtained. The following Medications were given to the patient in the Emergency Department: Zofran ODT [PO] PO 4 mg, administered: 10/31/2016 1:20:00 AM Bentyl [PO] PO 20 mg, administered: 10/31/2016 1:21:00 AM The following Medications were prescribed to the patient: Miralax: take 1 package mixed in 8 ounces water or juice every day as needed for constipation. Dispense one (1) twelve pack. No refills. Substitution is permissible. -- Torres Alex Dr.
--- NOTE | 2016-11-01 05:48 | ED DISCHARGE INSTRUCTIONS ---
Patient: MARIANNE PERKINS General Instructions [facility] VisitID: [id number] [place] [address] 51y, F Registration Date/Time: 10/30/2016 Constipation INSTRUCTIONS Your Current Medications: CONTINUE TAKING THE FOLLOWING MEDICATIONS: Aylin-D Allergy & Congestion Oral. Fiber Oral. Flonase Nasal. Glucosamine Oral. Milk of mag x 2*. Omeprazole Oral. Percocet Oral : 5/325 mg PRN. Stool Softener Oral. zofran 4mg ODT for nausea *. Prescription Medications: Miralax: take 1 package mixed in 8 ounces water or juice every day as needed for constipation. Dispense one (1) twelve pack. No refills. Substitution is permissible. Follow-up: Follow up with your doctor in about two days. Call for an appointment. Screening today revealed the patient's blood pressure to be in the hypertensive range. The patient should follow up with a primary care provider for blood pressure management. ADDITIONAL INFORMATION Constipation (Adult) Constipation is bowel movements that are less frequent than usual. Stools often become very hard and difficult to pass. This may lead to abdominal pain and bloating. It may also cause painful bowel movements. Constipation may be due to a diet thats low in fiber. Some medications, especially pain medications, can also cause it. Constipation may be treated with enemas, suppositories, laxatives or stool softeners. Your doctor will advise you which will work best for you. Follow the advice below to help avoid this problem in the future. Home Care Medication: Take any medicines as directed. Some laxatives are safe only for occasional use. Others can be taken on a regular basis. Talk to your doctor or pharmacist if you have questions. General Care: Prescription pain medications can cause constipation. If you are prescribed pain medications, ask the doctor whether you should also take a stool softener. A diet high in fiber with plenty of fluids helps to maintain regular, soft bowel movements. The following foods are good sources of dietary fiber: Cereals and breads: Whole grain cereal with bran, oatmeal, rolled oats, whole grain breads Fruits: All fruits (fresh and dried), raisins, prunes, apricots, berries, figs Vegetables: Any fresh vegetables, especially peas, broccoli, brussels sprouts, winter squash, green beans, cauliflower, richard beans, carrots Other: Popcorn, brown rice Drink plenty of water when you increase the amount of fiber you eat. Follow Up with your doctor or return to this facility if symptoms do not improve in the next few days. You may require further tests or a referral to a specialist. Get Prompt Medical Attention if any of the following occur: Fever over 100.4F (38C) Failure to resume normal bowel movements Increasing abdominal or back pain Nausea or vomiting Abdominal swelling Blood in the stool Weakness, dizziness or fainting Unexpected vaginal bleeding You have been given the following additional information: Constipation (Adult) (Electronically signed by Torres Alex Dr. 11/01/2016 5:46)
== END 2016-10-31 02:53 | disposition home or self-care (01) ==
LOC: ED SRH 22:43
DX: K59.00 Constipation, unspecified (principal); Z79.899 Other long term (current) drug therapy; Z91.018 Allergy to other foods; Z91.040 Latex allergy status